=== PATIENT | male | born 1980 | race Caucasian/White ===

== ENCOUNTER 2020-12-21 21:33 | Inpatient (IN) | payer MEDICARE ==
[2020-12-21 21:44] LABS: Glucose,Whole Blood 529 mg/dL (75-99)
[2020-12-21] MEDS ORDERED: SODIUM CHLORIDE 0.9% 1,000 ML IV STA ×2 (21:46→21:49)
[2020-12-21] MEDS ORDERED: HYDROmorphone 0.5 MG/0.5 ML SYRINGE IVP STA (21:47)
--- NOTE | 2020-12-21 21:49 | ED ---
General Adult HPI - General Chief complaint: Nausea/Vomiting/Diarrhea Stated complaint: Hyperglycemia Time Seen by Provider: 12/21/20 21:38 Source: EMS Mode of arrival: EMS Limitations: no limitations - History of Present Illness Initial comments: Dictation was produced using [employer] dictation software. please excuse any grammatical, word or spelling errors. This patient was cared for during a federal and state declared state of emergency secondary to Covid 19 Chief Complaint: 40-year-old male with past medical history of insulin-dependent diabetes presents with total body pain History of Present Illness: 20-year-old male who presents with total body pain. Patient has history of insulin-dependent diabetes he was recently admitted at [facility] where he states he was discharged. He states he was discharged to [facility]. He takes insulin to control his diabetes. Patient states has been taking it per usual. Patient states he feels nauseated. Does complain of generalized abdominal pain. He states the symptoms are typical of his DKA. EMS: Patient is brought to the emergency department he had a platelet care blood glucose of 530. The ROS documented in this emergency department record has been reviewed and confirmed by me. Those systems with pertinent positive or negative responses have been documented in the HPI. All other systems are other negative and/or noncontributory. PHYSICAL EXAM: General Impression: Alert and oriented x3, not in acute distress, smells of acetone HEENT: Normocephalic atraumatic, extra-ocular movements intact, pupils equal and reactive to light bilaterally, dry mucous members, very poor dentition Cardiovascular: Heart regular rate and rhythm Chest: Able to complete full sentences, no retractions, no tachypnea Abdomen: abdomen soft, non-tender, non-distended, no organomegaly Musculoskeletal: Pulses present and equal in all extremities, no peripheral edema Motor: no focal deficits noted Neurological: CN II-XII grossly intact, no focal motor or sensory deficits noted Skin: Intact with no visualized rashes Psych: Normal affect and mood ED course: 40-year-old male presents with clinical presentation concerning for diabetic ketoacidosis. Vital signs upon arrival shows heart rate of 103, rest of vital signs within acceptable limits. She given a liter bolus. Patient sta rted on insulin drip. His potassium is 5.8 with EKG changes. Laboratory evaluation obtained. Mild leukocytosis of 12.9 likely secondary to stress. Blood gas shows venous blood gas pH 7.19 bicarb of 9 and a pCO2 of 25. Metabolic panel also sodium 129, glucose of 05/02/1975 pseudohyponatremia, po tassium 5.8, bicarb less than 5, undetectable anion gap, magnesium 2.4. Clinical presentation consistent with severe diabetic ketoacidosis. Case is discussed with Dr. Loco in the ICU is willing to accept patients care. Case is discussed with sound physician Dr. Donato was went except patient's care to the hospitalist group. EKG interpretation: Ventricular rate was 70, sinus tachycardia,. 126, QRS 92, QTc 445 there is. No HI prolongation, no QTC prolongation. There appears to be some hyperacute T waves in the precordial leads. - Related Data Allergies Allergy/AdvReac Type Severity Reaction Status Date / Time ibuprofen [From Motrin] Allergy Itching Verified 12/21/20 21:45 Review of Systems ROS Statement: Those systems with pertinent positive or pertinent negative responses have been documented in the HPI. ROS Other: All systems not noted in ROS Statement are negative. Past Medical History Past Medical History: Diabetes Mellitus Additional Past Medical History / Comment(s): sick sinus syndrome History of Any Multi-Drug Resistant Organisms: None Reported Past Surgical History: Cholecystectomy Past Psychological History: No Psychological Hx Reported Smoking Status: Former smoker Past Alcohol Use History: None Reported Past Drug Use History: Marijuana General Exam Limitations: no limitations Course Vital Signs 12/21/20 21:38 Temperature 97.5 F L Pulse Rate 103 H Respiratory 24 Rate Blood Pressure 143/96 O2 Sat by Pulse 100 Oximetry Medical Decision Making - Lab Data Result diagrams: 12/21/20 22:26 12/21/20 21:49 Lab Results 12/21/20 12/21/20 12/21/20 Range/Units 21:43 21:49 21:49 WBC (3.8-10.6) k/uL RBC (4.30-5.90) m/uL Hgb (13.0-17.5) gm/dL Hct (39.0-53.0) % MCV (80.0-100.0) fL MCH (25.0-35.0) pg MCHC (31.0-37.0) g/dL RDW (11.5-15.5) % Plt Count (150-450) k/uL MPV Neutrophils % % Lymphocytes % % Monocytes % % Eosinophils % % Basophils % % Neutrophils # (1.3-7.7) k/uL Lymphocytes # (1.0-4.8) k/uL Monocytes # (0-1.0) k/uL Eosinophils # (0-0.7) k/uL Basophils # (0-0.2) k/uL VBG pH (7.31-7.41) VBG pCO2 (37-51) mmHg VBG HCO3 (24-28) mmol/L Sodium 129 L (137-145) mmol/L Potassium 5.8 H (3.5-5.1) mmol/L Chloride 88 L (98-107) mmol/L Carbon Dioxide <5 L* (22-30) mmol/L Anion Gap mmol/L BUN 35 H (9-20) mg/dL Creatinine 1.22 (0.66-1.25) mg/dL Est GFR (CKD-EPI)AfAm 85 (>60 ml/min/1.73 sqM) Est GFR (CKD-EPI)NonAf 74 (>60 ml/min/1.73 sqM) Glucose 624 H* (74-99) mg/dL POC Glucose (mg/dL) 529 H (75-99) mg/dL POC Glu Purchasing Buyer ID Ramo Prince Plasma Lactic Acid Dick 1.8 (0.7-2.0) mmol/L Calcium 10.7 H (8.4-10.2) mg/dL Magnesium 2.4 H (1.6-2.3) mg/dL Total Bilirubin 1.1 (0.2-1.3) mg/dL AST 35 (17-59) U/L ALT 28 (4-49) U/L Alkaline Phosphatase 143 H (38-126) U/L Total Protein 8.2 (6.3-8.2) g/dL Albumin 5.1 H (3.5-5.0) g/dL 12/21/20 12/21/20 Range/Units 21:49 22:26 WBC 12.9 H (3.8-10.6) k/uL RBC 4.45 (4.30-5.90) m/uL Hgb 13.9 (13.0-17.5) gm/dL Hct 43.2 (39.0-53.0) % MCV 97.1 (80.0-100.0) fL MCH 31.2 (25.0-35.0) pg MCHC 32.1 (31.0-37.0) g/dL RDW 13.6 (11.5-15.5) % Plt Count 289 (150-450) k/uL MPV 8.1 Neutrophils % 73 % Lymphocytes % 20 % Monocytes % 5 % Eosinophils % 1 % Basophils % 0 % Neutrophils # 9.3 H (1.3-7.7) k/uL Lymphocytes # 2.5 (1.0-4.8) k/uL Monocytes # 0.7 (0-1.0) k/uL Eosinophils # 0.1 (0-0.7) k/uL Basophils # 0.0 (0-0.2) k/uL VBG pH 7.19 L* (7.31-7.41) VBG pCO2 25 L (37-51) mmHg VBG HCO3 9 L* (24-28) mmol/L Sodium (137-145) mmol/L Potassium (3.5-5.1) mmol/L Chloride (98-107) mmol/L Carbon Dioxide (22-30) mmol/L Anion Gap mmol/L BUN (9-20) mg/dL Creatinine (0.66-1.25) mg/dL Est GFR (CKD-EPI)AfAm (>60 ml/min/1.73 sqM) Est GFR (CKD-EPI)NonAf (>60 ml/min/1.73 sqM) Glucose (74-99) mg/dL POC Glucose (mg/dL) (75-99) mg/dL POC Glu Purchasing Buyer ID Plasma Lactic Acid Dick (0.7-2.0) mmol/L Calcium (8.4-10.2) mg/dL Magnesium (1.6-2.3) mg/dL Total Bilirubin (0.2-1.3) mg/dL AST (17-59) U/L ALT (4-49) U/L Alkaline Phosphatase (38-126) U/L Total Protein (6.3-8.2) g/dL Albumin (3.5-5.0) g/dL Critical Care Time Critical Care Time: Yes Total Critical Care Time: 33 Disposition Clinical Impression: DKA (diabetic ketoacidoses) Disposition: ADMITTED IP TO THIS HOSP Condition: Critical Referrals: None,Stated [Primary Care Provider] - 1-2 days Decision Time: 22:42
[2020-12-21 22:15] LABS: ALT 28 U/L (4-49); AST 35 U/L (17-59); African American GFR (CKD) 85 (>60 ml/min/1.73 sqM); Albumin 5.1 g/dL (3.5-5.0); Alkaline Phosphatase 143 U/L (38-126); Blood Urea Nitrogen 35 mg/dL (9-20); Calcium 10.7 mg/dL (8.4-10.2); Chloride 88 mmol/L (98-107); Magnesium 2.4 mg/dL (1.6-2.3); Non-African American GFR(CKD) 74 (>60 ml/min/1.73 sqM); Potassium 5.8 mmol/L (3.5-5.1); Sodium 129 mmol/L (137-145); Total Bilirubin 1.1 mg/dL (0.2-1.3); Total Protein 8.2 g/dL (6.3-8.2)
[2020-12-21 22:25] LABS: Carbon Dioxide <5 mmol/L (22-30); Glucose 624 mg/dL (74-99)
[2020-12-21] MEDS ORDERED: Potassium Replacement Protocol 1 EACH MISC MISCELLANE PRN (22:32)
[2020-12-21] MEDS ORDERED: INSULIN REGULAR BOLUS (FROM DRIP BAG) IV ONE (22:32)
[2020-12-21] MEDS ORDERED: Magnesium Replacement Protocol 1 EACH MISC MISCELLANE PRN (22:32)
[2020-12-21] MEDS ORDERED: NALOXONE 0.4 MG/ML 1 ML VIAL IV PRN (22:34)
[2020-12-21 22:39] LABS: VBG PH 7.19 (7.31-7.41)
[2020-12-21 22:40] LABS: Basophils % (A) 0 %; Eosinophils # (A) 0.1 k/uL (0-0.7); Eosinophils % (A) 1 %; HCT 43.2 % (39.0-53.0); HGB 13.9 gm/dL (13.0-17.5); Lymphocytes # (A) 2.5 k/uL (1.0-4.8); Lymphocytes % (A) 20 %; MCH 31.2 pg (25.0-35.0); MCHC 32.1 g/dL (31.0-37.0); MCV 97.1 fL (80.0-100.0); Mean Platelet Volume 8.1; Monocytes # (A) 0.7 k/uL (0-1.0); Monocytes % (A) 5 %; Neutrophils # (A) 9.3 k/uL (1.3-7.7); Neutrophils % (A) 73 %; Platelet Count 289 k/uL (150-450); RBC 4.45 m/uL (4.30-5.90); RDW 13.6 % (11.5-15.5); WBC 12.9 k/uL (3.8-10.6)
[2020-12-21] MEDS ORDERED: SODIUM CHLORIDE 0.9% 1,000 ML IV SCH (22:45)
[2020-12-21] MEDS: INSULIN REGULAR 100 UNIT in SODIUM CHLORIDE 0.9% 100 ML IV SCH (22:48)
[2020-12-21] MEDS ORDERED: CALCIUM GLUCONATE 1 GM in SODIUM CHLORIDE 0.9% 100 ML IVPB ONE (23:18)
[2020-12-21 23:23] LABS: Glucose,Whole Blood 536 mg/dL (75-99)
--- NOTE | 2020-12-21 23:23 | P.HPIM ---
History of Present Illness H&P Date: 12/21/20 Patient is a 1-year-old male with a PMH of type I DM who presented to the emergency room with complaints of nausea, vomiting, weakness. The patient notes that he was admitted some [facility] for DKA 4 days ago when he he presented with with similar complaints. He was discharged from there yesterday, but notes that he felt that it was too early. Patient notes that he went home and continued taking his insulin regimen but had multiple episodes of nausea and vomiting at which point he decided to come to the emergency room. Reports that the vomiting is nonbloody, too many episodes to count today. Denied fever, chills, chest, shortness of breath, diarrhea, abdominal pain.That he feels "tired all over". He notes that his symptoms are typical of his usual episodes of DKA for which he has been admitted to the hospital several times. He underwent an extensive evaluation in the emergency room which was all reviewed with the count 12.9, pH 7.19 on VBG, sodium 129, potassium 5.8, chloride 88, CO2 less than 5, BUN 35, creatinine 1.22, glucose 624, calcium 10.7, magnesium 2.4, alk phos 143, and albumin of 5.1. EKG reveals sinus tachycardia at 107 bpm with a rightward axis along with peaked T waves. Review of Systems Pertinent positives and negatives as discussed in HPI, a complete review of systems was performed and all other systems are negative. Past Medical History Past Medical History: Diabetes Mellitus Additional Past Medical History / Comment(s): sick sinus syndrome History of Any Multi-Drug Resistant Organisms: None Reported Past Surgical History: Cholecystectomy Past Psychological History: No Psychological Hx Reported Smoking Status: Former smoker Past Alcohol Use History: None Reported Past Drug Use History: Marijuana Medications and Allergies Allergies Allergy/AdvReac Type Severity Reaction Status Date / Time ibuprofen [From Motrin] Allergy Itching Verified 12/21/20 21:45 Physical Exam Vitals: Vital Signs Temp Pulse Resp BP Pulse Ox 12/21/20 21:38 97.5 F L 103 H 24 143/96 100 Intake and Output 12/21/20 12/21/20 12/22/20 14:59 22:59 06:59 Other: Weight 68.039 kg General: Chronically ill-appearing thin male, no distress, appears older than stated age Derm: no unusual rashes/lesions no unusual ecchymoses, warm, dry Head: atraumatic, normocephalic, symmetric Eyes: EOMI, no lid lag, anicteric sclera, pupils equal round reactive to light ENT: Nose and ears atraumatic, no thrush, no pharyngeal erythema Neck: No thyromegaly, no cervical lymphadenopathy, trachea midline, supple Mouth: no lip lesion, mucus membranes dry Cardiovascular: S1S2 reg, tachycardic, no murmur, positive posterior tibial pulse bilateral, no edema, capillary refill less than 2 seconds Lungs: CTA bilateral, no rhonchi, no rales , no accessory muscle use Abdominal: soft, nontender to palpation, no guarding, no appreciable organomegaly, normal bowel sounds Ext: no gross muscle atrophy, muscle strength 4 out of 5 in all 4 extremities grossly, no contractures, Neuro: CN II-XI grossly intact, light touch intact all 4 extremities Psych: Alert, oriented, appropriate affect Results CBC & Chem 7: 12/21/20 22:26 12/21/20 21:49 Labs: Abnormal Lab Results - Last 24 Hours (Table) 12/21/20 12/21/20 12/21/20 Range/Units 21:43 21:49 21:49 WBC (3.8-10.6) k/uL Neutrophils # (1.3-7.7) k/uL VBG pH 7.19 L* (7.31-7.41) VBG pCO2 25 L (37-51) mmHg VBG HCO3 9 L* (24-28) mmol/L Sodium 129 L (137-145) mmol/L Potassium 5.8 H (3.5-5.1) mmol/L Chloride 88 L (98-107) mmol/L Carbon Dioxide <5 L* (22-30) mmol/L BUN 35 H (9-20) mg/dL Glucose 624 H* (74-99) mg/dL POC Glucose (mg/dL) 529 H (75-99) mg/dL Calcium 10.7 H (8.4-10.2) mg/dL Magnesium 2.4 H (1.6-2.3) mg/dL Alkaline Phosphatase 143 H (38-126) U/L Albumin 5.1 H (3.5-5.0) g/dL 12/21/20 Range/Units 22:26 WBC 12.9 H (3.8-10.6) k/uL Neutrophils # 9.3 H (1.3-7.7) k/uL VBG pH (7.31-7.41) VBG pCO2 (37-51) mmHg VBG HCO3 (24-28) mmol/L Sodium (137-145) mmol/L Potassium (3.5-5.1) mmol/L Chloride (98-107) mmol/L Carbon Dioxide (22-30) mmol/L BUN (9-20) mg/dL Glucose (74-99) mg/dL POC Glucose (mg/dL) (75-99) mg/dL Calcium (8.4-10.2) mg/dL Magnesium (1.6-2.3) mg/dL Alkaline Phosphatase (38-126) U/L Albumin (3.5-5.0) g/dL Assessment and Plan Plan: DKA in type 1 diabetic -Insulin infusion -IV fluids 200 mL an hour -DKA protocol with electrolyte monitoring every 4 hourly -Blood glucose monitoring every hour -Admitted to medical ICU -nursing educator -Nothing by mouth for now Nausea, vomiting -Likely due to DKA -Antiemetics Hyperkalemia with peaked T waves -Administer calcium gluconate -Monitor electrolytes -Cardiac monitoring Pseudohyponatremia -Monitor BMP Leukocytosis -Likely due to dehydration -Monitor for now DVT prophylaxis -Heparin subq The patient is admitted with an anticipated Greater than 2 midnight stay for evaluation of DKA CODE STATUS: Full Code Discussed with: Patient Anticipated discharge date: 2-[address]: Home A total of 40 minutes was spent on the care of this complex patient more than 50% of the time was spent in counseling and care coordination.
[2020-12-21 23:50] LABS: VBG PH 7.11 (7.31-7.41)
[2020-12-21 23:59] LABS: Glucose,Whole Blood 478 mg/dL (75-99)
[2020-12-22] LABS: African American GFR (CKD) 74 (>60 ml/min/1.73 sqM); Blood Urea Nitrogen 36 mg/dL (9-20); Chloride 92 mmol/L (98-107); Non-African American GFR(CKD) 64 (>60 ml/min/1.73 sqM); Phosphorus 5.9 mg/dL (2.5-4.5); Potassium 5.6 mmol/L (3.5-5.1); Sodium 129 mmol/L (137-145)
[2020-12-22 00:24] LABS: Carbon Dioxide <5 mmol/L (22-30); Glucose 610 mg/dL (74-99)
[2020-12-22 01:00] LABS: Glucose,Whole Blood 390 mg/dL (75-99)
[2020-12-22] MEDS: ONDANSETRON 4 MG/2 ML VIAL IVP PRN ×2 (01:01→07:04)
[2020-12-22] MEDS: MORPHINE SULFATE 2 MG/ML SYRINGE IVP PRN ×2 (01:01→12:20)
[2020-12-22 01:59] LABS: Glucose,Whole Blood 238 mg/dL (75-99)
[2020-12-22] MEDS ORDERED: DEXTROSE 5%-0.45% NACL 1,000 ML with POTASSIUM CHLORIDE 20 MEQ IV SCH ×2 (02:00)
[2020-12-22 03:04] LABS: Glucose,Whole Blood 186 mg/dL (75-99)
[2020-12-22 04:09] LABS: Glucose,Whole Blood 155 mg/dL (75-99)
[2020-12-22 04:26] LABS: Basophils % (A) 0 %; Eosinophils % (A) 0 %; HGB 13.1 gm/dL (13.0-17.5); Lymphocytes # (A) 2.5 k/uL (1.0-4.8); Lymphocytes % (A) 15 %; MCH 30.6 pg (25.0-35.0); MCHC 32.8 g/dL (31.0-37.0); MCV 93.4 fL (80.0-100.0); Mean Platelet Volume 7.5; Monocytes # (A) 0.8 k/uL (0-1.0); Monocytes % (A) 5 %; Neutrophils # (A) 13.3 k/uL (1.3-7.7); Neutrophils % (A) 80 %; Platelet Count 290 k/uL (150-450); RBC 4.29 m/uL (4.30-5.90); RDW 13.6 % (11.5-15.5); WBC 16.7 k/uL (3.8-10.6)
[2020-12-22 04:36] LABS: African American GFR (CKD) >90 (>60 ml/min/1.73 sqM); Anion Gap 21 mmol/L; Blood Urea Nitrogen 33 mg/dL (9-20); Carbon Dioxide 12 mmol/L (22-30); Chloride 102 mmol/L (98-107); Glucose 183 mg/dL (74-99); Non-African American GFR(CKD) 79 (>60 ml/min/1.73 sqM); Potassium 4.6 mmol/L (3.5-5.1); Sodium 135 mmol/L (137-145)
[2020-12-22 05:00] LABS: Glucose,Whole Blood 122 mg/dL (75-99)
[2020-12-22 06:05] LABS: Glucose,Whole Blood 120 mg/dL (75-99)
[2020-12-22 06:55] LABS: Glucose,Whole Blood 114 mg/dL (75-99)
[2020-12-22 07:57] LABS: African American GFR (CKD) >90 (>60 ml/min/1.73 sqM); Anion Gap 17 mmol/L; Blood Urea Nitrogen 32 mg/dL (9-20); Carbon Dioxide 15 mmol/L (22-30); Chloride 104 mmol/L (98-107); Non-African American GFR(CKD) >90 (>60 ml/min/1.73 sqM); Phosphorus 3.9 mg/dL (2.5-4.5); Potassium 4.6 mmol/L (3.5-5.1); Sodium 136 mmol/L (137-145)
[2020-12-22 08:25] LABS: Glucose,Whole Blood 166 mg/dL (75-99)
--- NOTE | 2020-12-22 08:34 | P.CNPUL ---
History of Present Illness Consult date: 12/22/20 Chief complaint: DKA History of present illness: 40-year-old male patient, type I diabetic, presented to the emergency with DKA after having some nausea and emesis and generalized weakness at home. The patient was at [facility] for DKA about 4 days ago with similar presentation. He was discharged yesterday. He went home. He was taken apparently his insulin regimen and he continued to have nausea and vomiting and he decided to come to our emergency department. In the ED, the patient was acidotic and he was in DKA. Sodium was at 129 with a potassium level of 5.8, serum bicarbonate was less than 5, glucose was 624, and his BUN was 35. Potassium level was at 5.6 with a normal liver function tests, the [place] 19 testing was negative. The lactic acid level was within normal limits. The chest x-ray was not done. Since arrival, the patient was started on IV fluids. He was given a total of 2 L in the emergency and there is a station was continued in the ICU. He was started on an insulin drip. [facility], it is on a D5 half-normal saline with 20 mEq of potassium running at the rate of 150 mL an hour. He remains on insulin drip running at 1 unit per hour. 1. His most recent blood sugar is at 166. His most recent blood work shows an anion gap which is closing is down to 17 and the patient has a serum bicarb of 15. He did encounter some nausea and he was given Zofran. No emesis for now. Review of Systems All systems: negative Constitutional: Reports weakness Eyes: bilateral blurred vision, denies as per HPI, denies bulging eye, denies decreased vision, denies diplopia, denies discharge, denies dry eye, denies irritation, denies itching, denies pain, denies photophobia, denies loss of peripheral vision, denies loss of vision, denies tunnel vision/blind spots Ears: deny: decreased hearing, ear discharge, earache, tinnitus Ears, nose, mouth and throat: Denies headache, Denies sore throat Breasts: absent: as per HPI, gynecomastia Cardiovascular: Reports as per HPI Respiratory: Reports as per HPI Gastrointestinal: Reports nausea, Reports vomiting Genitourinary: Reports as per HPI Musculoskeletal: Reports as per HPI Musculoskeletal: absent: ankle pain, ankle stiffness, ankle swelling Integumentary: Reports as per HPI Neurological: Reports weakness Psychiatric: Reports as per HPI Endocrine: Reports as per HPI Hematologic/Lymphatic: Reports as per HPI Allergic/Immunologic: Reports as per HPI Past Medical History Past Medical History: Diabetes Mellitus Additional Past Medical History / Comment(s): sick sinus syndrome History of Any Multi-Drug Resistant Organisms: None Reported Past Surgical History: Cholecystectomy Past Psychological History: No Psychological Hx Reported Smoking Status: Former smoker Past Alcohol Use History: None Reported Past Drug Use History: Marijuana Medications and Allergies Home Medications Medication Instructions Recorded Confirmed Type Acetaminophen Tab [Tylenol] 1,000 mg PO DAILY PRN 12/21/20 12/21/20 History Insulin Aspart [NovoLOG] 16 unit SQ BID-W/MEALS 12/21/20 12/21/20 History Insulin Aspart [NovoLOG] See Protocol SQ BID-W/MEALS 12/21/20 12/21/20 History Insulin Glargine,Hum.rec.anlog 30 unit SQ HS 12/21/20 12/21/20 History [Basaglar Kwikpen U-100] dilTIAZem HCL [dilTIAZem HCL 24Hr 120 mg PO DAILY 12/21/20 12/21/20 History ER (Xr)] Allergies Allergy/AdvReac Type Severity Reaction Status Date / Time ibuprofen [From Motrin] Allergy Itching Verified 12/21/20 23:21 Physical Exam Vitals: Vital Signs Temp Pulse Resp BP Pulse Ox 12/22/20 07:00 99 21 112/77 99 12/22/20 06:00 87 18 111/69 96 12/22/20 05:00 96 17 120/80 97 12/22/20 04:00 97.4 F L 86 13 117/80 96 12/22/20 03:00 90 13 128/87 97 12/22/20 02:00 96 12 123/81 98 12/22/20 01:00 95 14 159/98 98 12/22/20 00:21 94 12 98 12/22/20 00:00 98.3 F 112 H 22 160/97 99 12/21/20 23:30 97 16 125/70 100 12/21/20 23:00 98 16 114/53 100 12/21/20 22:30 101 H 18 108/80 100 12/21/20 22:00 107 H 22 123/71 100 12/21/20 21:38 97.5 F L 103 H 24 143/96 100 Intake and Output 12/21/20 12/22/20 12/22/20 22:59 06:59 14:59 Intake Total 1254.744 150 Output Total 600 0 Balance 654.744 150 Intake: IV 1200 150 Dextrose 5%-0.45% NaCl 1, 600 150 000 ml @ 150 mls/hr IV . Q7H20M EDGAR with Potassium Chloride 20 meq Rx#: [id number] Sodium Chloride 0.9% 1, 600 000 ml @ 200 mls/hr IV . Q5H EDGAR Rx#:[id number] Intake, IV Titration 54.744 Amount Insulin Regular 100 unit 54.744 In Sodium Chloride 0.9% 100 ml @ 0.1 UNITS/KG/HR 6.872 mls/hr IV .[id number] EDGAR Rx#:[id number] Output: Urine 600 0 Other: Voiding Method Urinal Weight 68.039 kg 73.391 kg The patient appeared well nourished and normally developed. Vital signs as documented. Head exam is unremarkable. No scleral icterus or corneal arcus noted. Neck is without jugular venous distension, thyromegaly, or carotid bruits. Carotid upstrokes are brisk bilaterally. Lungs are clear to auscultation and percussion. Cardiac exam reveals the PMI to be normally sized and situated. Rhythm is regular. First and second heart sounds normal. No murmurs, rubs or gallops. Abdominal exam reveals normal bowel sounds, no masses, no organomegaly and no aortic enlargement. Extremities are nonedematous and both femoral and pedal pulses are normal.Examination of the skin revealed no evidence of significant rashes, suspicious appearing nevi or other concerning lesions. Neurologically the patient is arousable. His neurologic exam is nonfocal. Is following commands. Answering questions and moving extremities without any limitation. Results - Laboratory Findings CBC and BMP: 12/22/20 03:24 12/22/20 07:30 Abnormal lab findings: Abnormal Labs 12/21/20 12/21/20 12/21/20 21:43 21:49 21:49 WBC RBC Neutrophils # VBG pH 7.19 L* VBG pCO2 25 L VBG HCO3 9 L* Sodium 129 L Potassium 5.8 H Chloride 88 L Carbon Dioxide <5 L* BUN 35 H Creatinine Glucose 624 H* POC Glucose (mg/dL) 529 H Calcium 10.7 H Phosphorus Magnesium 2.4 H Alkaline Phosphatase 143 H Albumin 5.1 H 12/21/20 12/21/20 12/21/20 22:26 23:07 23:07 WBC 12.9 H RBC Neutrophils # 9.3 H VBG pH 7.11 L* VBG pCO2 25 L VBG HCO3 8 L* Sodium 129 L Potassium 5.6 H Chloride 92 L Carbon Dioxide <5 L* BUN 36 H Creatinine 1.36 H Glucose 610 H* POC Glucose (mg/dL) Calcium Phosphorus 5.9 H Magnesium Alkaline Phosphatase Albumin 12/21/20 12/21/20 12/22/20 23:20 23:48 00:58 WBC RBC Neutrophils # VBG pH VBG pCO2 VBG HCO3 Sodium Potassium Chloride Carbon Dioxide BUN Creatinine Glucose POC Glucose (mg/dL) 536 H 478 H 390 H Calcium Phosphorus Magnesium Alkaline Phosphatase Albumin 12/22/20 12/22/20 12/22/20 01:58 03:02 03:21 WBC RBC Neutrophils # VBG pH VBG pCO2 VBG HCO3 Sodium 135 L Potassium Chloride Carbon Dioxide 12 L BUN 33 H Creatinine Glucose 183 H POC Glucose (mg/dL) 238 H 186 H Calcium Phosphorus Magnesium Alkaline Phosphatase Albumin 12/22/20 12/22/20 12/22/20 03:24 04:07 04:59 WBC 16.7 H RBC 4.29 L Neutrophils # 13.3 H VBG pH VBG pCO2 VBG HCO3 Sodium Potassium Chloride Carbon Dioxide BUN Creatinine Glucose POC Glucose (mg/dL) 155 H 122 H Calcium Phosphorus Magnesium Alkaline Phosphatase Albumin 12/22/20 12/22/20 12/22/20 06:03 06:53 07:30 WBC RBC Neutrophils # VBG pH VBG pCO2 VBG HCO3 Sodium 136 L Potassium Chloride Carbon Dioxide 15 L BUN 32 H Creatinine Glucose POC Glucose (mg/dL) 120 H 114 H Calcium Phosphorus Magnesium Alkaline Phosphatase Albumin Assessment and Plan Plan: 1. Diabetic ketoacidosis in a 40-year-old male patient who has type 1 diabetes mellitus. This is a recurrent event. The patient had nausea and emesis probably related to underlying gastroparesis. His liver function tests are within normal. His post cholecystectomy. He is still nauseated. He is having some dry heaves. He remains on D5 half-normal saline at the rate of 150 mL an hour and insulin at 1 units per hour. The anion gap improving. Anion gap metabolic acidosis improving and the gap is down to 17 with a serum bicarb of 15. 2 diabetes mellitus type 1 3 ongoing nausea and emesis. Rule out underlying diabetic gastroparesis. Will need amylase and lipase. Currently on Zofran 4 history of cholecystectomy. 5 pseudohyponatremia, 6 acute hyperkalemia, improved with intracellular shift of potassium with insulin therapy Plan Check amylase and lipase Abdominal exam is benign. IV Protonix IV Zofran as needed for nausea Keep the insulin drip running as long as the patient is unable to eat and the patient is still in anion gap metabolic acidosis and the most recent manic episodes 17 and continue also the D5 half-normal saline at the rate of 150 mL an hour and monitor the blood sugar on an hourly basis Monitor urine output and electrolytes Keep in the ICU Will follow
[2020-12-22 08:59] LABS: Amylase 69 U/L (30-110); Lipase 73 U/L (23-300)
[2020-12-22 09:09] LABS: Glucose,Whole Blood 185 mg/dL (75-99)
[2020-12-22] MEDS ORDERED: Phosphorus Replacement Protoco 1 EACH MISC MISCELLANE PRN (09:25)
--- NOTE | 2020-12-22 09:26 | P.PN ---
Subjective Progress Note Date: 12/22/20 Patient was seen and evaluated by me in the intensive care today. He is very tired and sleepy. He is having dry heaves earlier this morning. Lab work showing some improvement currently on DKA protocol. Objective - Vital Signs Vital signs: Vital Signs Temp 97.4 F L 12/22/20 04:00 Pulse 99 12/22/20 07:00 Resp 21 12/22/20 07:00 BP 112/77 12/22/20 07:00 Pulse Ox 99 12/22/20 07:00 Intake & Output 12/21/20 12/22/20 12/22/20 18:59 06:59 18:59 Intake Total 1254.744 150 Output Total 600 0 Balance 654.744 150 Weight 73.391 kg Intake: IV 1200 150 Dextrose 5%-0.45% NaCl 1, 600 150 000 ml @ 150 mls/hr IV . Q7H20M [facility] with Potassium Chloride 20 meq Rx#: [id number] Sodium Chloride 0.9% 1, 600 000 ml @ 200 mls/hr IV . Q5H [facility] Rx#:[id number] Intake, IV Titration 54.744 Amount Insulin Regular 100 unit 54.744 In Sodium Chloride 0.9% 100 ml @ 0.1 UNITS/KG/HR 6.872 mls/hr IV .[id number] [facility] Rx#:[id number] Output: Urine 600 0 Other: Voiding Method Urinal - Exam General: The patient is awake and alert, in no distress Eye: there is normal conjunctiva bilaterally. Neck: The neck is supple, there is no JVD. Cardiovascular: Normal S1-S2, no S3-S4, no murmurs. Respiratory: Lungs clear to auscultation bilaterally Gastrointestinal: Abdomen is soft, nontender Musculoskeletal: There is no pedal edema. Neurological:. Speech is normal. Skin: Skin is warm and dry - Labs CBC & Chem 7: 12/22/20 03:24 12/22/20 07:30 Labs: Abnormal Lab Results - Last 24 Hours (Table) 12/21/20 12/21/20 12/21/20 Range/Units 21:43 21:49 21:49 WBC (3.8-10.6) k/uL RBC (4.30-5.90) m/uL Neutrophils # (1.3-7.7) k/uL VBG pH 7.19 L* (7.31-7.41) VBG pCO2 25 L (37-51) mmHg VBG HCO3 9 L* (24-28) mmol/L Sodium 129 L (137-145) mmol/L Potassium 5.8 H (3.5-5.1) mmol/L Chloride 88 L (98-107) mmol/L Carbon Dioxide <5 L* (22-30) mmol/L BUN 35 H (9-20) mg/dL Creatinine (0.66-1.25) mg/dL Glucose 624 H* (74-99) mg/dL POC Glucose (mg/dL) 529 H (75-99) mg/dL Calcium 10.7 H (8.4-10.2) mg/dL Phosphorus (2.5-4.5) mg/dL Magnesium 2.4 H (1.6-2.3) mg/dL Alkaline Phosphatase 143 H (38-126) U/L Albumin 5.1 H (3.5-5.0) g/dL 12/21/20 12/21/20 12/21/20 Range/Units 22:26 23:07 23:07 WBC 12.9 H (3.8-10.6) k/uL RBC (4.30-5.90) m/uL Neutrophils # 9.3 H (1.3-7.7) k/uL VBG pH 7.11 L* (7.31-7.41) VBG pCO2 25 L (37-51) mmHg VBG HCO3 8 L* (24-28) mmol/L Sodium 129 L (137-145) mmol/L Potassium 5.6 H (3.5-5.1) mmol/L Chloride 92 L (98-107) mmol/L Carbon Dioxide <5 L* (22-30) mmol/L BUN 36 H (9-20) mg/dL Creatinine 1.36 H (0.66-1.25) mg/dL Glucose 610 H* (74-99) mg/dL POC Glucose (mg/dL) (75-99) mg/dL Calcium (8.4-10.2) mg/dL Phosphorus 5.9 H (2.5-4.5) mg/dL Magnesium (1.6-2.3) mg/dL Alkaline Phosphatase (38-126) U/L Albumin (3.5-5.0) g/dL 12/21/20 12/21/20 12/22/20 Range/Units 23:20 23:48 00:58 WBC (3.8-10.6) k/uL RBC (4.30-5.90) m/uL Neutrophils # (1.3-7.7) k/uL VBG pH (7.31-7.41) VBG pCO2 (37-51) mmHg VBG HCO3 (24-28) mmol/L Sodium (137-145) mmol/L Potassium (3.5-5.1) mmol/L Chloride (98-107) mmol/L Carbon Dioxide (22-30) mmol/L BUN (9-20) mg/dL Creatinine (0.66-1.25) mg/dL Glucose (74-99) mg/dL POC Glucose (mg/dL) 536 H 478 H 390 H (75-99) mg/dL Calcium (8.4-10.2) mg/dL Phosphorus (2.5-4.5) mg/dL Magnesium (1.6-2.3) mg/dL Alkaline Phosphatase (38-126) U/L Albumin (3.5-5.0) g/dL 12/22/20 12/22/20 12/22/20 Range/Units 01:58 03:02 03:21 WBC (3.8-10.6) k/uL RBC (4.30-5.90) m/uL Neutrophils # (1.3-7.7) k/uL VBG pH (7.31-7.41) VBG pCO2 (37-51) mmHg VBG HCO3 (24-28) mmol/L Sodium 135 L (137-145) mmol/L Potassium (3.5-5.1) mmol/L Chloride (98-107) mmol/L Carbon Dioxide 12 L (22-30) mmol/L BUN 33 H (9-20) mg/dL Creatinine (0.66-1.25) mg/dL Glucose 183 H (74-99) mg/dL POC Glucose (mg/dL) 238 H 186 H (75-99) mg/dL Calcium (8.4-10.2) mg/dL Phosphorus (2.5-4.5) mg/dL Magnesium (1.6-2.3) mg/dL Alkaline Phosphatase (38-126) U/L Albumin (3.5-5.0) g/dL 12/22/20 12/22/20 12/22/20 Range/Units 03:24 04:07 04:59 WBC 16.7 H (3.8-10.6) k/uL RBC 4.29 L (4.30-5.90) m/uL Neutrophils # 13.3 H (1.3-7.7) k/uL VBG pH (7.31-7.41) VBG pCO2 (37-51) mmHg VBG HCO3 (24-28) mmol/L Sodium (137-145) mmol/L Potassium (3.5-5.1) mmol/L Chloride (98-107) mmol/L Carbon Dioxide (22-30) mmol/L BUN (9-20) mg/dL Creatinine (0.66-1.25) mg/dL Glucose (74-99) mg/dL POC Glucose (mg/dL) 155 H 122 H (75-99) mg/dL Calcium (8.4-10.2) mg/dL Phosphorus (2.5-4.5) mg/dL Magnesium (1.6-2.3) mg/dL Alkaline Phosphatase (38-126) U/L Albumin (3.5-5.0) g/dL 12/22/20 12/22/20 12/22/20 Range/Units 06:03 06:53 07:30 WBC (3.8-10.6) k/uL RBC (4.30-5.90) m/uL Neutrophils # (1.3-7.7) k/uL VBG pH (7.31-7.41) VBG pCO2 (37-51) mmHg VBG HCO3 (24-28) mmol/L Sodium 136 L (137-145) mmol/L Potassium (3.5-5.1) mmol/L Chloride (98-107) mmol/L Carbon Dioxide 15 L (22-30) mmol/L BUN 32 H (9-20) mg/dL Creatinine (0.66-1.25) mg/dL Glucose (74-99) mg/dL POC Glucose (mg/dL) 120 H 114 H (75-99) mg/dL Calcium (8.4-10.2) mg/dL Phosphorus (2.5-4.5) mg/dL Magnesium (1.6-2.3) mg/dL Alkaline Phosphatase (38-126) U/L Albumin (3.5-5.0) g/dL 12/22/20 12/22/20 Range/Units 08:23 09:07 WBC (3.8-10.6) k/uL RBC (4.30-5.90) m/uL Neutrophils # (1.3-7.7) k/uL VBG pH (7.31-7.41) VBG pCO2 (37-51) mmHg VBG HCO3 (24-28) mmol/L Sodium (137-145) mmol/L Potassium (3.5-5.1) mmol/L Chloride (98-107) mmol/L Carbon Dioxide (22-30) mmol/L BUN (9-20) mg/dL Creatinine (0.66-1.25) mg/dL Glucose (74-99) mg/dL POC Glucose (mg/dL) 166 H 185 H (75-99) mg/dL Calcium (8.4-10.2) mg/dL Phosphorus (2.5-4.5) mg/dL Magnesium (1.6-2.3) mg/dL Alkaline Phosphatase (38-126) U/L Albumin (3.5-5.0) g/dL Assessment and Plan Assessment: This is a 40-year-old male with past medical history noted below significant for type 1 diabetes who presented to the emergency room with nausea and vomiting one day after being discharged from the hospital in [place]. Patient was evaluated in the ER and admitted to the hospital for further management of his medical problems noted below. 1. Diabetic ketoacidosis 2. Uncontrolled type 1 diabetes 3. Acute metabolic acidosis 4. Nausea and vomiting 5. Hypovolemic hyponatremia 6. Hyperkalemia Patient is admitted to the ICU and is treated with insulin drip and aggressive IV fluid hydration. DKA protocol. Hyperkalemia resolved after being treated medically. Continue to monitor lab work every 4 hours and replace electrolytes as needed. IV Zofran as needed for nausea. We will continue to monitor clinical status. A1c pending. Appreciate ICU team recommendations.
--- NOTE | 2020-12-22 09:38 | XR ---
EXAMINATION TYPE: XR chest 1V portable DATE OF EXAM: 12/22/2020 Comparison: None Clinical History: 40-year-old male SOB, history of smoker and MJ Findings: Loop recorder device projects over the medial left mid chest. Heart normal size. Aorta and pulmonary vasculature within normal limits. Mild hyperinflation. No consolidation or pleural effusion. IMPRESSION: Correlation for possible underlying emphysema. Loop recorder device. No acute process seen.
[2020-12-22 10:09] LABS: Glucose,Whole Blood 214 mg/dL (75-99)
[2020-12-22 10:58] LABS: Glucose,Whole Blood 237 mg/dL (75-99)
[2020-12-22 11:54] LABS: African American GFR (CKD) >90 (>60 ml/min/1.73 sqM); Anion Gap 21 mmol/L; Blood Urea Nitrogen 29 mg/dL (9-20); Calcium 9.4 mg/dL (8.4-10.2); Carbon Dioxide 10 mmol/L (22-30); Chloride 104 mmol/L (98-107); Glucose 275 mg/dL (74-99); Magnesium 2.1 mg/dL (1.6-2.3); Non-African American GFR(CKD) 85 (>60 ml/min/1.73 sqM); Phosphorus 3.1 mg/dL (2.5-4.5); Potassium 4.7 mmol/L (3.5-5.1); Sodium 135 mmol/L (137-145)
[2020-12-22] MEDS: HEPARIN SODIUM,PORCINE 5,000 UNIT/ML 1 ML VIAL SQ SCH ×2 (11:57→19:58)
[2020-12-22 12:04] LABS: Glucose,Whole Blood 228 mg/dL (75-99)
[2020-12-22 13:24] LABS: Glucose,Whole Blood 186 mg/dL (75-99)
[2020-12-22 14:02] LABS: Glucose,Whole Blood 180 mg/dL (75-99)
[2020-12-22 14:24] LABS: Hemoglobin A1C 12.4 % (4.0-6.0)
[2020-12-22 15:02] LABS: Glucose,Whole Blood 221 mg/dL (75-99)
[2020-12-22 15:47] LABS: African American GFR (CKD) >90 (>60 ml/min/1.73 sqM); Anion Gap 19 mmol/L; Blood Urea Nitrogen 25 mg/dL (9-20); Calcium 9.3 mg/dL (8.4-10.2); Carbon Dioxide 11 mmol/L (22-30); Chloride 104 mmol/L (98-107); Glucose 243 mg/dL (74-99); Magnesium 2.1 mg/dL (1.6-2.3); Non-African American GFR(CKD) >90 (>60 ml/min/1.73 sqM); Phosphorus 3.5 mg/dL (2.5-4.5); Sodium 134 mmol/L (137-145)
[2020-12-22] MEDS: D5-0.45% NACL WITH KCL 20MEQ/L 1,000 ML IV SCH ×3 (16:48→20:01)
[2020-12-22] MEDS: INSULIN REGULAR 100 UNIT in SODIUM CHLORIDE 0.9% 100 ML IV SCH (16:52)
[2020-12-22 17:05] LABS: Glucose,Whole Blood 236 mg/dL (75-99)
[2020-12-22 18:08] LABS: Glucose,Whole Blood 216 mg/dL (75-99)
[2020-12-22 19:00] LABS: Glucose,Whole Blood 218 mg/dL (75-99)
[2020-12-22 19:57] LABS: Glucose,Whole Blood 219 mg/dL (75-99)
[2020-12-22 19:59] LABS: African American GFR (CKD) >90 (>60 ml/min/1.73 sqM); Anion Gap 14 mmol/L; Blood Urea Nitrogen 21 mg/dL (9-20); Calcium 9.2 mg/dL (8.4-10.2); Carbon Dioxide 15 mmol/L (22-30); Chloride 104 mmol/L (98-107); Glucose 253 mg/dL (74-99); Non-African American GFR(CKD) >90 (>60 ml/min/1.73 sqM); Phosphorus 2.5 mg/dL (2.5-4.5); Potassium 4.8 mmol/L (3.5-5.1); Sodium 133 mmol/L (137-145)
[2020-12-22 20:55] LABS: Glucose,Whole Blood 248 mg/dL (75-99)
[2020-12-22] MEDS ORDERED: SODIUM PHOSPHATE 10 MMOL in SODIUM CHLORIDE 0.9% 250 ML IVPB ONE (21:00)
[2020-12-22 22:02] LABS: Glucose,Whole Blood 207 mg/dL (75-99)
[2020-12-22 22:57] LABS: Glucose,Whole Blood 225 mg/dL (75-99)
[2020-12-22 23:56] LABS: African American GFR (CKD) >90 (>60 ml/min/1.73 sqM); Anion Gap 12 mmol/L; Blood Urea Nitrogen 19 mg/dL (9-20); Carbon Dioxide 17 mmol/L (22-30); Chloride 105 mmol/L (98-107); Glucose 225 mg/dL (74-99); Magnesium 1.9 mg/dL (1.6-2.3); Non-African American GFR(CKD) >90 (>60 ml/min/1.73 sqM); Phosphorus 2.9 mg/dL (2.5-4.5); Potassium 4.3 mmol/L (3.5-5.1); Sodium 134 mmol/L (137-145)
[2020-12-23 00:01] LABS: Glucose,Whole Blood 203 mg/dL (75-99)
[2020-12-23 00:56] LABS: Glucose,Whole Blood 219 mg/dL (75-99)
[2020-12-23 01:59] LABS: Glucose,Whole Blood 197 mg/dL (75-99)
[2020-12-23] MEDS: MAGNESIUM SULFATE-D5W PMX 1 GM in DEXTROSE/WATER 1 100ML.BAG IVPB SCH ×2 (02:05→03:03)
[2020-12-23 02:58] LABS: Glucose,Whole Blood 193 mg/dL (75-99)
[2020-12-23] MEDS: D5-0.45% NACL WITH KCL 20MEQ/L 1,000 ML IV SCH (04:07)
[2020-12-23] MEDS: INSULIN REGULAR 100 UNIT in SODIUM CHLORIDE 0.9% 100 ML IV SCH (04:07)
[2020-12-23 04:11] LABS: Glucose,Whole Blood 201 mg/dL (75-99)
[2020-12-23 04:22] LABS: HCT 37.1 % (39.0-53.0); HGB 12.3 gm/dL (13.0-17.5); MCH 30.7 pg (25.0-35.0); MCHC 33.1 g/dL (31.0-37.0); MCV 92.6 fL (80.0-100.0); Mean Platelet Volume 7.1; Platelet Count 254 k/uL (150-450); RBC 4.01 m/uL (4.30-5.90); RDW 13.8 % (11.5-15.5); WBC 9.2 k/uL (3.8-10.6)
[2020-12-23 04:29] LABS: African American GFR (CKD) >90 (>60 ml/min/1.73 sqM); Anion Gap 7 mmol/L; Blood Urea Nitrogen 18 mg/dL (9-20); Calcium 8.9 mg/dL (8.4-10.2); Carbon Dioxide 22 mmol/L (22-30); Chloride 103 mmol/L (98-107); Glucose 217 mg/dL (74-99); Magnesium 2.6 mg/dL (1.6-2.3); Non-African American GFR(CKD) >90 (>60 ml/min/1.73 sqM); Potassium 3.9 mmol/L (3.5-5.1); Sodium 132 mmol/L (137-145)
[2020-12-23] MEDS ORDERED: POTASSIUM CHLORIDE ER 20 MEQ TAB.ER PO SCH (05:00)
[2020-12-23 05:02] LABS: Glucose,Whole Blood 207 mg/dL (75-99)
[2020-12-23 06:01] LABS: Glucose,Whole Blood 202 mg/dL (75-99)
[2020-12-23 07:02] LABS: Glucose,Whole Blood 225 mg/dL (75-99)
[2020-12-23 08:27] LABS: Glucose,Whole Blood 236 mg/dL (75-99)
[2020-12-23] MEDS: MORPHINE SULFATE 2 MG/ML SYRINGE IVP PRN ×3 (08:56→20:45)
[2020-12-23] MEDS: INSULIN DETEMIR (LEVEMIR) 100 UNIT/ML SYR SQ SCH (08:56)
[2020-12-23] MEDS: HEPARIN SODIUM,PORCINE 5,000 UNIT/ML 1 ML VIAL SQ SCH ×2 (08:56→22:41)
--- NOTE | 2020-12-23 09:45 | P.PN ---
Subjective Progress Note Date: 12/23/20 Patient is doing a lot better today. His lab work improved significantly. He denies any abdominal pain. He reports feeling hungry. Patient informed me that he had difficulties obtaining his medications for the last couple of month as he lost his Medicaid and was unable to afford his co-pay Objective - Vital Signs Vital signs: Vital Signs Temp 98.1 F 12/23/20 08:00 Pulse 77 12/23/20 09:00 Resp 11 L 12/23/20 09:00 BP 142/92 12/23/20 09:00 Pulse Ox 96 12/23/20 09:00 Intake & Output 12/22/20 12/23/20 12/23/20 18:59 06:59 18:59 Intake Total 9808.720 7882.599 300 Output Total 2000 950 Balance -172.276 2758.599 300 Weight 73.391 kg 72.8 kg Intake: IV 1800 2400 300 Dextrose 5%-0.45% NaCl 1, 1800 1950 300 000 ml @ 150 mls/hr IV . Q7H20M [facility] with Potassium Chloride 20 meq Rx#: [id number] Magnesium Sulfate-D5w Pmx 200 1 gm In Dextrose/Water 1 100ml.bag @ 100 mls/hr IVPB Q1H [facility] Rx#: [id number] Sodium Phosphate 10 mmol 250 In Sodium Chloride 0.9% 250 ml @ 125 mls/hr IVPB ONCE ONE Rx#:[id number] Intake, IV Titration 10.276 11.599 Amount Insulin Regular 100 unit 10.276 11.599 In Sodium Chloride 0.9% 100 ml @ 0.1 UNITS/KG/HR 6.872 mls/hr IV .[id number] [facility] Rx#:[id number] Output: Urine 2000 950 Other: Voiding Method Urinal Urinal Urinal - Exam General: The patient is awake and alert, in no distress Eye: there is normal conjunctiva bilaterally. Neck: The neck is supple, there is no JVD. Cardiovascular: Normal S1-S2, no S3-S4, no murmurs. Respiratory: Lungs clear to auscultation bilaterally Gastrointestinal: Abdomen is soft, nontender Musculoskeletal: There is no pedal edema. Neurological:. Speech is normal. Skin: Skin is warm and dry - Labs CBC & Chem 7: 12/23/20 03:40 12/23/20 03:40 Labs: Abnormal Lab Results - Last 24 Hours (Table) 12/22/20 12/22/20 12/22/20 Range/Units 03:21 10:07 10:57 RBC (4.30-5.90) m/uL Hgb (13.0-17.5) gm/dL Hct (39.0-53.0) % Sodium (137-145) mmol/L Carbon Dioxide (22-30) mmol/L BUN (9-20) mg/dL Glucose (74-99) mg/dL POC Glucose (mg/dL) 214 H 237 H (75-99) mg/dL Hemoglobin A1c 12.4 H (4.0-6.0) % Magnesium (1.6-2.3) mg/dL 12/22/20 12/22/20 12/22/20 Range/Units 11:25 12:03 13:23 RBC (4.30-5.90) m/uL Hgb (13.0-17.5) gm/dL Hct (39.0-53.0) % Sodium 135 L (137-145) mmol/L Carbon Dioxide 10 L (22-30) mmol/L BUN 29 H (9-20) mg/dL Glucose 275 H (74-99) mg/dL POC Glucose (mg/dL) 228 H 186 H (75-99) mg/dL Hemoglobin A1c (4.0-6.0) % Magnesium (1.6-2.3) mg/dL 12/22/20 12/22/20 12/22/20 Range/Units 14:01 15:00 15:12 RBC (4.30-5.90) m/uL Hgb (13.0-17.5) gm/dL Hct (39.0-53.0) % Sodium 134 L (137-145) mmol/L Carbon Dioxide 11 L (22-30) mmol/L BUN 25 H (9-20) mg/dL Glucose 243 H (74-99) mg/dL POC Glucose (mg/dL) 180 H 221 H (75-99) mg/dL Hemoglobin A1c (4.0-6.0) % Magnesium (1.6-2.3) mg/dL 12/22/20 12/22/20 12/22/20 Range/Units 17:03 18:06 18:59 RBC (4.30-5.90) m/uL Hgb (13.0-17.5) gm/dL Hct (39.0-53.0) % Sodium (137-145) mmol/L Carbon Dioxide (22-30) mmol/L BUN (9-20) mg/dL Glucose (74-99) mg/dL POC Glucose (mg/dL) 236 H 216 H 218 H (75-99) mg/dL Hemoglobin A1c (4.0-6.0) % Magnesium (1.6-2.3) mg/dL 12/22/20 12/22/20 12/22/20 Range/Units 19:23 19:56 20:53 RBC (4.30-5.90) m/uL Hgb (13.0-17.5) gm/dL Hct (39.0-53.0) % Sodium 133 L (137-145) mmol/L Carbon Dioxide 15 L (22-30) mmol/L BUN 21 H (9-20) mg/dL Glucose 253 H (74-99) mg/dL POC Glucose (mg/dL) 219 H 248 H (75-99) mg/dL Hemoglobin A1c (4.0-6.0) % Magnesium (1.6-2.3) mg/dL 12/22/20 12/22/20 12/22/20 Range/Units 22:01 22:55 23:29 RBC (4.30-5.90) m/uL Hgb (13.0-17.5) gm/dL Hct (39.0-53.0) % Sodium 134 L (137-145) mmol/L Carbon Dioxide 17 L (22-30) mmol/L BUN (9-20) mg/dL Glucose 225 H (74-99) mg/dL POC Glucose (mg/dL) 207 H 225 H (75-99) mg/dL Hemoglobin A1c (4.0-6.0) % Magnesium (1.6-2.3) mg/dL 12/22/20 12/23/20 12/23/20 Range/Units 23:59 00:55 01:58 RBC (4.30-5.90) m/uL Hgb (13.0-17.5) gm/dL Hct (39.0-53.0) % Sodium (137-145) mmol/L Carbon Dioxide (22-30) mmol/L BUN (9-20) mg/dL Glucose (74-99) mg/dL POC Glucose (mg/dL) 203 H 219 H 197 H (75-99) mg/dL Hemoglobin A1c (4.0-6.0) % Magnesium (1.6-2.3) mg/dL 12/23/20 12/23/20 12/23/20 Range/Units 02:56 03:40 03:40 RBC 4.01 L (4.30-5.90) m/uL Hgb 12.3 L (13.0-17.5) gm/dL Hct 37.1 L (39.0-53.0) % Sodium 132 L (137-145) mmol/L Carbon Dioxide (22-30) mmol/L BUN (9-20) mg/dL Glucose 217 H (74-99) mg/dL POC Glucose (mg/dL) 193 H (75-99) mg/dL Hemoglobin A1c (4.0-6.0) % Magnesium 2.6 H (1.6-2.3) mg/dL 12/23/20 12/23/20 12/23/20 Range/Units 04:09 05:01 06:00 RBC (4.30-5.90) m/uL Hgb (13.0-17.5) gm/dL Hct (39.0-53.0) % Sodium (137-145) mmol/L Carbon Dioxide (22-30) mmol/L BUN (9-20) mg/dL Glucose (74-99) mg/dL POC Glucose (mg/dL) 201 H 207 H 202 H (75-99) mg/dL Hemoglobin A1c (4.0-6.0) % Magnesium (1.6-2.3) mg/dL 12/23/20 12/23/20 Range/Units 07:00 08:26 RBC (4.30-5.90) m/uL Hgb (13.0-17.5) gm/dL Hct (39.0-53.0) % Sodium (137-145) mmol/L Carbon Dioxide (22-30) mmol/L BUN (9-20) mg/dL Glucose (74-99) mg/dL POC Glucose (mg/dL) 225 H 236 H (75-99) mg/dL Hemoglobin A1c (4.0-6.0) % Magnesium (1.6-2.3) mg/dL Assessment and Plan Assessment: This is a 40-year-old male with past medical history noted below significant for type 1 diabetes who presented to the emergency room with nausea and vomiting one day after being discharged from the hospital in [place]. Patient was evaluated in the ER and admitted to the hospital for further management of his medical problems noted below. 1. Diabetic ketoacidosis 2. Uncontrolled type 1 diabetes, A1c 12.4 3. Acute metabolic acidosis 4. Nausea and vomiting 5. Hypovolemic hyponatremia 6. Hyperkalemia Patient was admitted to the ICU and is treated with insulin drip and aggressive IV fluid hydration. DKA protocol. Hyperkalemia resolved after being treated medically. Start Levemir 30 units daily and NovoLog 5 units 3 times a day before each meal plus sliding scale insulin. Advance diet as tolerated for consistent carbohydrate. Repeat lab work in the morning. bottling room worker consult to help with Medicaid. Anticipated discharge home tomorrow.
--- NOTE | 2020-12-23 10:51 | P.PN ---
Subjective Progress Note Date: 12/23/20 Principal diagnosis: Acute diabetic ketoacidosis 40-year-old male patient, type I diabetic, presented to the emergency with DKA after having some nausea and emesis and generalized weakness at home. The patient was at [facility] for DKA about 4 days ago with similar presentation. He was discharged yesterday. He went home. He was taken apparently his insulin regimen and he continued to have nausea and vomiting and he decided to come to our emergency department. In the ED, the patient was acidotic and he was in DKA. Sodium was at 129 with a potassium level of 5.8, serum bicarbonate was less than 5, glucose was 624, and his BUN was 35. Potassium level was at 5.6 with a normal liver function tests, the [place] 19 testing was negative. The lactic acid level was within normal limits. The chest x-ray was not done. Since arrival, the patient was started on IV fluids. He was given a total of 2 L in the emergency and there is a station was continued in the ICU. He was started on an insulin drip. At this point in time, it is on a D5 half-normal saline with 20 mEq of potassium running at the rate of 150 mL an hour. He remains on insulin drip running at 1 unit per hour. 1. His most recent blood sugar is at 166. His most recent blood work shows an anion gap which is closing is down to 17 and the patient has a serum bicarb of 15. He did encounter some nausea and he was given Zofran. No emesis for now. Reevaluated today on 12/23/2020, patient remains in the ICU, he responded well to the treatment that he was given for his acute diabetic ketoacidosis. Patient continues to have some vague abdominal discomfort, no nausea, no vomiting, patient is still on insulin drip, presently on 1 unit per hour. And his IV fluid is D5 4 5 at 1 50 mL per hour. Labs today were noted to be excellent. His anion gap has corrected nicely. Electrolytes are normal. CBC is normal. Blood sugar this morning is 217. Hence I plan to transfer the patient out of the ICU to a regular medical floor. Patient remains on Zofran for intermittent nausea. But presently not nauseated. Objective - Vital Signs Vital signs: Vital Signs Temp 98.1 F 12/23/20 08:00 Pulse 79 02/14/21 10:00 Resp 23 12/23/20 10:00 BP 151/109 12/23/20 10:00 Pulse Ox 98 12/23/20 10:00 Intake & Output 12/22/20 12/23/20 12/23/20 18:59 06:59 18:59 Intake Total 4308.801 4321.599 300 Output Total 2000 950 Balance -330.945 9043.599 300 Weight 73.391 kg 72.8 kg Intake: IV 1800 2400 300 Dextrose 5%-0.45% NaCl 1, 1800 1950 300 000 ml @ 150 mls/hr IV . Q7H20M [facility] with Potassium Chloride 20 meq Rx#: [id number] Magnesium Sulfate-D5w Pmx 200 1 gm In Dextrose/Water 1 100ml.bag @ 100 mls/hr IVPB Q1H [facility] Rx#: [id number] Sodium Phosphate 10 mmol 250 In Sodium Chloride 0.9% 250 ml @ 125 mls/hr IVPB ONCE ONE Rx#:[id number] Intake, IV Titration 10.276 11.599 Amount Insulin Regular 100 unit 10.276 11.599 In Sodium Chloride 0.9% 100 ml @ 0.1 UNITS/KG/HR 6.872 mls/hr IV .[id number] [facility] Rx#:[id number] Output: Urine 2000 950 Other: Voiding Method Urinal Urinal Urinal # Bowel Movements 1 - Exam Physical Exam: Revealed 40-year-old white male in no distress. Head: Atraumatic, normocephalic. HEENT:[Neck is supple.] [No neck masses.] [No thyromegaly.] [No JVD.] Chest: [Clear throughout, no crackles, no rhonchi, no wheezes.] Cardiac Exam: [Normal S1 and S2, no S3 gallop, no murmur.] Abdomen: [Soft, nontender, no megaly, no rebound, no guarding, normal bowel sounds.] Extremities: [No clubbing, no edema, no cyanosis.] Neurological Exam: [No focal neurologic deficit.] Alert and oriented 3. Psychiatric: Normal mood affect and normal mental status examination. Skin: No rashes - Labs CBC & Chem 7: 12/23/20 03:40 12/23/20 03:40 Labs: Abnormal Lab Results - Last 24 Hours (Table) 12/22/20 12/22/20 12/22/20 Range/Units 03:21 10:57 11:25 RBC (4.30-5.90) m/uL Hgb (13.0-17.5) gm/dL Hct (39.0-53.0) % Sodium 135 L (137-145) mmol/L Carbon Dioxide 10 L (22-30) mmol/L BUN 29 H (9-20) mg/dL Glucose 275 H (74-99) mg/dL POC Glucose (mg/dL) 237 H (75-99) mg/dL Hemoglobin A1c 12.4 H (4.0-6.0) % Magnesium (1.6-2.3) mg/dL 12/22/20 12/22/20 12/22/20 Range/Units 12:03 13:23 14:01 RBC (4.30-5.90) m/uL Hgb (13.0-17.5) gm/dL Hct (39.0-53.0) % Sodium (137-145) mmol/L Carbon Dioxide (22-30) mmol/L BUN (9-20) mg/dL Glucose (74-99) mg/dL POC Glucose (mg/dL) 228 H 186 H 180 H (75-99) mg/dL Hemoglobin A1c (4.0-6.0) % Magnesium (1.6-2.3) mg/dL 12/22/20 12/22/20 12/22/20 Range/Units 15:00 15:12 17:03 RBC (4.30-5.90) m/uL Hgb (13.0-17.5) gm/dL Hct (39.0-53.0) % Sodium 134 L (137-145) mmol/L Carbon Dioxide 11 L (22-30) mmol/L BUN 25 H (9-20) mg/dL Glucose 243 H (74-99) mg/dL POC Glucose (mg/dL) 221 H 236 H (75-99) mg/dL Hemoglobin A1c (4.0-6.0) % Magnesium (1.6-2.3) mg/dL 12/22/20 12/22/20 12/22/20 Range/Units 18:06 18:59 19:23 RBC (4.30-5.90) m/uL Hgb (13.0-17.5) gm/dL Hct (39.0-53.0) % Sodium 133 L (137-145) mmol/L Carbon Dioxide 15 L (22-30) mmol/L BUN 21 H (9-20) mg/dL Glucose 253 H (74-99) mg/dL POC Glucose (mg/dL) 216 H 218 H (75-99) mg/dL Hemoglobin A1c (4.0-6.0) % Magnesium (1.6-2.3) mg/dL 12/22/20 12/22/20 12/22/20 Range/Units 19:56 20:53 22:01 RBC (4.30-5.90) m/uL Hgb (13.0-17.5) gm/dL Hct (39.0-53.0) % Sodium (137-145) mmol/L Carbon Dioxide (22-30) mmol/L BUN (9-20) mg/dL Glucose (74-99) mg/dL POC Glucose (mg/dL) 219 H 248 H 207 H (75-99) mg/dL Hemoglobin A1c (4.0-6.0) % Magnesium (1.6-2.3) mg/dL 12/22/20 12/22/20 12/22/20 Range/Units 22:55 23:29 23:59 RBC (4.30-5.90) m/uL Hgb (13.0-17.5) gm/dL Hct (39.0-53.0) % Sodium 134 L (137-145) mmol/L Carbon Dioxide 17 L (22-30) mmol/L BUN (9-20) mg/dL Glucose 225 H (74-99) mg/dL POC Glucose (mg/dL) 225 H 203 H (75-99) mg/dL Hemoglobin A1c (4.0-6.0) % Magnesium (1.6-2.3) mg/dL 12/23/20 12/23/20 12/23/20 Range/Units 00:55 01:58 02:56 RBC (4.30-5.90) m/uL Hgb (13.0-17.5) gm/dL Hct (39.0-53.0) % Sodium (137-145) mmol/L Carbon Dioxide (22-30) mmol/L BUN (9-20) mg/dL Glucose (74-99) mg/dL POC Glucose (mg/dL) 219 H 197 H 193 H (75-99) mg/dL Hemoglobin A1c (4.0-6.0) % Magnesium (1.6-2.3) mg/dL 12/23/20 12/23/20 12/23/20 Range/Units 03:40 03:40 04:09 RBC 4.01 L (4.30-5.90) m/uL Hgb 12.3 L (13.0-17.5) gm/dL Hct 37.1 L (39.0-53.0) % Sodium 132 L (137-145) mmol/L Carbon Dioxide (22-30) mmol/L BUN (9-20) mg/dL Glucose 217 H (74-99) mg/dL POC Glucose (mg/dL) 201 H (75-99) mg/dL Hemoglobin A1c (4.0-6.0) % Magnesium 2.6 H (1.6-2.3) mg/dL 12/23/20 12/23/20 12/23/20 Range/Units 05:01 06:00 07:00 RBC (4.30-5.90) m/uL Hgb (13.0-17.5) gm/dL Hct (39.0-53.0) % Sodium (137-145) mmol/L Carbon Dioxide (22-30) mmol/L BUN (9-20) mg/dL Glucose (74-99) mg/dL POC Glucose (mg/dL) 207 H 202 H 225 H (75-99) mg/dL Hemoglobin A1c (4.0-6.0) % Magnesium (1.6-2.3) mg/dL 12/23/20 Range/Units 08:26 RBC (4.30-5.90) m/uL Hgb (13.0-17.5) gm/dL Hct (39.0-53.0) % Sodium (137-145) mmol/L Carbon Dioxide (22-30) mmol/L BUN (9-20) mg/dL Glucose (74-99) mg/dL POC Glucose (mg/dL) 236 H (75-99) mg/dL Hemoglobin A1c (4.0-6.0) % Magnesium (1.6-2.3) mg/dL Assessment and Plan Assessment: Impression: Acute diabetic ketoacidosis. Poorly controlled type 1 diabetes. Anion gap metabolic acidosis, acute, secondary to acute DKA. Pseudohyponatremia. Mostly secondary to hyperglycemia. Acute Hyperkalemia secondary to metabolic acidosis Gastroparesis. Recommendation: Continue present supportive care measures. Continue the treatment as per DKA protocol. Switch patient to subcu insulin and sliding scale coverage. Would also recommend Lantus insulin. Transfer patient out of the ICU to a regular medical floor. Will follow Time with Patient: Less than 30
[2020-12-23 11:47] LABS: Glucose,Whole Blood 225 mg/dL (75-99)
[2020-12-23] MEDS: INSULIN ASPART (NovoLOG) 100 UNIT/ML VIAL SQ SCH ×5 (12:02→20:42)
[2020-12-23] MEDS ORDERED: PANTOPRAZOLE 40 MG TABLET PO STA (13:18)
[2020-12-23] MEDS: DILTIAZEM CD 120 MG CAP.ER.24H PO SCH (13:33)
[2020-12-23] MEDS: lisinopriL 10 MG TAB PO SCH (13:33)
[2020-12-23 15:38] VITALS: RESP 18
[2020-12-23 16:56] LABS: Glucose,Whole Blood 114 mg/dL (75-99)
[2020-12-23] MEDS: METOCLOPRAMIDE 5 MG TAB PO SCH (17:19)
[2020-12-23 20:32] LABS: Glucose,Whole Blood 118 mg/dL (75-99)
[2020-12-24] MEDS: MORPHINE SULFATE 2 MG/ML SYRINGE IVP PRN ×2 (03:17→09:04)
[2020-12-24 05:03] VITALS: TEMP 98.1
[2020-12-24] MEDS: INSULIN ASPART (NovoLOG) 100 UNIT/ML VIAL SQ SCH ×4 (06:33→12:51)
[2020-12-24 06:34] LABS: Glucose,Whole Blood 70 mg/dL (75-99)
[2020-12-24] MEDS: METOCLOPRAMIDE 5 MG TAB PO SCH ×2 (06:36→12:51)
[2020-12-24] MEDS: INSULIN DETEMIR (LEVEMIR) 100 UNIT/ML SYR SQ SCH (06:36)
[2020-12-24] MEDS ORDERED: PANTOPRAZOLE 40 MG TABLET PO SCH (07:30)
[2020-12-24 08:27] LABS: African American GFR (CKD) >90 (>60 ml/min/1.73 sqM); Anion Gap 6 mmol/L; Blood Urea Nitrogen 13 mg/dL (9-20); Calcium 9.4 mg/dL (8.4-10.2); Carbon Dioxide 27 mmol/L (22-30); Chloride 99 mmol/L (98-107); Glucose 86 mg/dL (74-99); Non-African American GFR(CKD) >90 (>60 ml/min/1.73 sqM); Phosphorus 3.2 mg/dL (2.5-4.5); Potassium 3.7 mmol/L (3.5-5.1); Sodium 132 mmol/L (137-145)
[2020-12-24] MEDS: HEPARIN SODIUM,PORCINE 5,000 UNIT/ML 1 ML VIAL SQ SCH (09:05)
[2020-12-24] MEDS: DILTIAZEM CD 120 MG CAP.ER.24H PO SCH (09:06)
--- NOTE | 2020-12-24 11:06 | P.DS ---
Providers Date of admission: 12/21/20 23:09 Expected date of discharge: 12/24/20 Attending physician: Lilia Donato MD Consults: 12/21/20 22:34 Consult Physician Stat Consulting Provider: Nathalie Loco Consult Reason/Comments: icu patient Do you want consulting provider notified?: Already Contacted Primary care physician: Stated None Hospital Course: This is a 40-year-old male with past medical history noted below significant for type 1 diabetes who presented to the emergency room with nausea and vomiting one day after being discharged from the hospital in [place]. Patient was evaluated in the ER and admitted to the hospital for further management of his medical problems noted below. 1. Diabetic ketoacidosis 2. Uncontrolled type 1 diabetes, A1c 12.4 3. Acute metabolic acidosis 4. Nausea and vomiting 5. Hypovolemic hyponatremia 6. Hyperkalemia Patient was admitted to the ICU and is treated with insulin drip and aggressive IV fluid hydration. DKA protocol. Hyperkalemia resolved after being treated medically. He was transferred out of ICU and monitor for 24 hours on subcutaneous insulin and his blood glucose remained well controlled and repeat lab work was normal Given a prescription for Lantus 25 units at bedtime and NovoLog 5 units 3 times a day before each meal plus sliding scale insulin. Patient said that he was having difficulty paying for his prescription so the hospital recovering his prescription until the end of the month so that he can take it from there after he get his paycheck from disability Patient was given referral to a primary care physician, Dr. Zambrano Patient will be discharged home in a stable condition. For further details about this hospitalization please refer to the electronic chart. Time spent on discharge > 30 minutes including counseling and coordination of care Patient Condition at Discharge: Stable Plan - Discharge Summary Discharge Rx Participant: No New Discharge Prescriptions: New Insulin Glargine [Lantus] 25 unit SQ HS #5 vial INSULIN ASPART (NovoLOG) [NovoLOG (formulary)] 5 unit SQ AC-TID #5 vial Continue Insulin Aspart [NovoLOG] See Protocol SQ BID-W/MEALS dilTIAZem HCL [dilTIAZem HCL 24Hr ER (Xr)] 120 mg PO DAILY Acetaminophen Tab [Tylenol] 1,000 mg PO DAILY PRN PRN Reason: Pain lisinopriL [Zestril] 10 mg PO DAILY Discontinued Insulin Glargine,Hum.rec.anlog [Basaglar Kwikpen U-100] 30 unit SQ HS Insulin Aspart [NovoLOG] 16 unit SQ BID-W/MEALS Discharge Medication List Acetaminophen Tab [Tylenol] 1,000 mg PO DAILY PRN 12/21/20 [History] Insulin Aspart [NovoLOG] See Protocol SQ BID-W/MEALS 12/21/20 [History] dilTIAZem HCL [dilTIAZem HCL 24Hr ER (Xr)] 120 mg PO DAILY 12/21/20 [History] lisinopriL [Zestril] 10 mg PO DAILY 12/23/20 [History] INSULIN ASPART (NovoLOG) [NovoLOG (formulary)] 5 unit SQ AC-TID #5 vial 12/24/20 [Rx] Insulin Glargine [Lantus] 25 unit SQ HS #5 vial 12/24/20 [Rx] Follow up Appointment(s)/Referral(s): None,Stated [Primary Care Provider] - 1 Week Jairo Ayon [STAFF PHYSICIAN] - 1 Week Patient Instructions/Handouts: Diabetic Ketoacidosis (DC) Activity/Diet/Wound Care/Special Instructions: LOW COST DIABETIC SUPPLIES [facility] [id number], [place] [address] Discharge Disposition: HOME SELF-CARE
[2020-12-24 11:32] VITALS: BMI 20.5
[2020-12-24 11:47] VITALS: BP 140/94; PULSE 74
[2020-12-24 11:51] LABS: Glucose,Whole Blood 159 mg/dL (75-99)
[2020-12-24] MEDS: lisinopriL 10 MG TAB PO SCH (12:51)
== END 2020-12-24 15:37 | disposition home or self-care (01) | DRG 639 ==
LOC: EC 21:33 → 2SICU 23:09 → 3SCARD 12-23 11:41
PROVIDERS: ADMIT Internal Medicine; ATTEND Internal Medicine
DX: E10.10 Type 1 diabetes mellitus with ketoacidosis without coma (principal); E10.43 Type 1 diabetes mellitus with diabetic autonomic (poly)neuropathy; D72.829 Elevated white blood cell count, unspecified; E86.0 Dehydration; E86.1 Hypovolemia; E87.5 Hyperkalemia; K31.84 Gastroparesis; Z79.4 Long term (current) use of insulin; Z87.891 Personal history of nicotine dependence; I49.5 Sick sinus syndrome; Z88.6 Allergy status to analgesic agent; Z90.49 Acquired absence of other specified parts of digestive tract; Z20.822 Contact with and (suspected) exposure to COVID-19
CPT/HCPCS: 36415; 71045; 80048; 80051; 80053; 82150; 82565; 82803; 82947; 83036; 83605; 83690; 83735; 84100; 84520; 85025; 85027; 87635; 93005; 96361; 96374; 99291

== ENCOUNTER 2021-07-11 09:22 | Inpatient (IN) | payer MEDICARE, OTHER ==
[2021-07-11 09:42] LABS: Glucose,Whole Blood 400 mg/dL (75-99)
[2021-07-11] MEDS ORDERED: SODIUM CHLORIDE 0.9% 2,000 ML IV STA (09:46)
[2021-07-11] MEDS ORDERED: INSULIN REGULAR BOLUS (FROM DRIP BAG) IV ONE (09:47)
--- NOTE | 2021-07-11 10:32 | ED ---
General Adult HPI - General Chief complaint: Nausea/Vomiting/Diarrhea Stated complaint: hyperglycemia Time Seen by Provider: 07/11/21 09:25 Source: patient, EMS, RN notes reviewed, old records reviewed Mode of arrival: EMS Limitations: no limitations - History of Present Illness Initial comments: This is a 40-year-old male who presents emergency Department complaining of vomiting since yesterday. Patient states he has no specific abdominal pain just overall his abdomen is achy. Patient states he has had this occur in the past. Patient denies any fever chills or cough. Patient shortness breath or difficulty breathing. Patient denies chest pain. Patient denies any recent injury or trauma. Patient denies any diarrhea. Patient states after he was vomiting for quite a while he did notice some bright red blood in the emesis. - Related Data Home Medications Medication Instructions Recorded Confirmed Acetaminophen Tab [Tylenol] 1,000 mg PO DAILY PRN 12/21/20 12/21/20 Insulin Aspart [NovoLOG] See Protocol SQ BID-W/MEALS 12/21/20 12/21/20 dilTIAZem HCL [dilTIAZem HCL 24Hr 120 mg PO DAILY 12/21/20 12/21/20 ER (Xr)] lisinopriL [Zestril] 10 mg PO DAILY 12/23/20 12/23/20 Previous Rx's Medication Instructions Recorded INSULIN ASPART (NovoLOG) [NovoLOG 5 unit SQ AC-TID #5 vial 12/24/20 (formulary)] Insulin Detemir (Levemir) [Levemir] 25 unit SQ DAILY #5 vial 12/24/20 Allergies Allergy/AdvReac Type Severity Reaction Status Date / Time ibuprofen [From Motrin] Allergy Itching Verified 12/21/20 23:21 Review of Systems ROS Statement: Those systems with pertinent positive or pertinent negative responses have been documented in the HPI. ROS Other: All systems not noted in ROS Statement are negative. Past Medical History Past Medical History: Diabetes Mellitus Additional Past Medical History / Comment(s): sick sinus syndrome History of Any Multi-Drug Resistant Organisms: None Reported Past Surgical History: Cholecystectomy Past Psychological History: No Psychological Hx Reported Smoking Status: Current every day smoker Past Alcohol Use History: None Reported Past Drug Use History: Marijuana General Exam - General Exam Comments Initial Comments: GENERAL: Patient is well-developed and well-nourished. Patient is nontoxic and well- hydrated and is in mild distress. ENT: Neck is soft and supple. No significant lymphadenopathy is noted. Oropharynx is clear. Dry mucous membranes. Neck has full range of motion without eliciting any pain. EYES: The sclera were anicteric and conjunctiva were pink and moist. Extraocular movements were intact and pupils were equal round and reactive to light. Eyelids were unremarkable. PULMONARY: Unlabored respirations. Good breath sounds bilaterally. No audible rales rhonchi or wheezing was noted. CARDIOVASCULAR: Patient is tachycardic at about 100 beats a minute ABDOMEN: Soft and nontender with normal bowel sounds. Patient has no specific area of tenderness. SKIN: Skin is clear with no lesions or rashes and otherwise unremarkable. NEUROLOGIC: Patient is alert and oriented x3. Cranial nerves II through XII are grossly intact. Motor and sensory are also intact. Normal speech, volume and content. Symmetrical smile. MUSCULOSKELETAL: Normal extremities with adequate strength and full range of motion. LYMPHATICS: No significant lymphadenopathy is noted PSYCHIATRIC: Normal psychiatric evaluation. Limitations: no limitations Course Vital Signs 07/11/21 07/11/21 09:29 10:34 Temperature 97.8 F Pulse Rate 101 H Respiratory 20 18 Rate Blood Pressure 145/88 O2 Sat by Pulse 100 Oximetry Medical Decision Making - Medical Decision Making Patient's sugar was in the 400s. Patient's bicarb 6 I started the patient immediately on an insulin drip after I gave the patient insulin bolus. Patient received 2 L of fluid initially. I spoke with some physicians they agreed to admit the patient admitted the patient I wrote wrote admitting orders I continued the insulin and fluids on the floor. - Lab Data Result diagrams: 07/11/21 10:29 07/11/21 10:29 Lab Results 07/11/21 07/11/21 07/11/21 Range/Units 09:41 10:29 10:29 WBC 21.2 H (3.8-10.6) k/uL RBC 4.80 (4.30-5.90) m/uL Hgb 15.2 (13.0-17.5) gm/dL Hct 45.5 (39.0-53.0) % MCV 94.8 (80.0-100.0) fL MCH 31.7 (25.0-35.0) pg MCHC 33.4 (31.0-37.0) g/dL RDW 13.9 (11.5-15.5) % Plt Count 387 (150-450) k/uL MPV 8.8 Neutrophils % 86 % Lymphocytes % 9 % Monocytes % 4 % Eosinophils % 0 % Basophils % 0 % Neutrophils # 18.3 H (1.3-7.7) k/uL Lymphocytes # 1.8 (1.0-4.8) k/uL Monocytes # 0.9 (0-1.0) k/uL Eosinophils # 0.0 (0-0.7) k/uL Basophils # 0.0 (0-0.2) k/uL PT (9.0-12.0) sec INR (<1.2) APTT (22.0-30.0) sec Sodium 140 (137-145) mmol/L Potassium 5.5 H (3.5-5.1) mmol/L Chloride 101 (98-107) mmol/L Carbon Dioxide 6 L* (22-30) mmol/L Anion Gap 33 mmol/L BUN 28 H (9-20) mg/dL Creatinine 1.28 H (0.66-1.25) mg/dL Est GFR (CKD-EPI)AfAm 80 (>60 ml/min/1.73 sqM) Est GFR (CKD-EPI)NonAf 69 (>60 ml/min/1.73 sqM) Glucose 428 H (74-99) mg/dL POC Glucose (mg/dL) 400 H (75-99) mg/dL POC Glu Reference Test Clerk ID Dejah Romero Calcium 10.0 (8.4-10.2) mg/dL Total Bilirubin 0.7 (0.2-1.3) mg/dL AST 28 (17-59) U/L ALT 19 (4-49) U/L Alkaline Phosphatase 115 (38-126) U/L Total Protein 7.6 (6.3-8.2) g/dL Albumin 4.9 (3.5-5.0) g/dL Amylase 103 (30-110) U/L Lipase 47 (23-300) U/L 07/11/21 07/11/21 Range/Units 10:29 12:31 WBC (3.8-10.6) k/uL RBC (4.30-5.90) m/uL Hgb (13.0-17.5) gm/dL Hct (39.0-53.0) % MCV (80.0-100.0) fL MCH (25.0-35.0) pg MCHC (31.0-37.0) g/dL RDW (11.5-15.5) % Plt Count (150-450) k/uL MPV Neutrophils % % Lymphocytes % % Monocytes % % Eosinophils % % Basophils % % Neutrophils # (1.3-7.7) k/uL Lymphocytes # (1.0-4.8) k/uL Monocytes # (0-1.0) k/uL Eosinophils # (0-0.7) k/uL Basophils # (0-0.2) k/uL PT 9.9 (9.0-12.0) sec INR 0.9 (<1.2) APTT 20.8 L (22.0-30.0) sec Sodium (137-145) mmol/L Potassium (3.5-5.1) mmol/L Chloride (98-107) mmol/L Carbon Dioxide (22-30) mmol/L Anion Gap mmol/L BUN (9-20) mg/dL Creatinine (0.66-1.25) mg/dL Est GFR (CKD-EPI)AfAm (>60 ml/min/1.73 sqM) Est GFR (CKD-EPI)NonAf (>60 ml/min/1.73 sqM) Glucose (74-99) mg/dL POC Glucose (mg/dL) 257 H (75-99) mg/dL POC Glu Reference Test Clerk ID Gerry Raines Calcium (8.4-10.2) mg/dL Total Bilirubin (0.2-1.3) mg/dL AST (17-59) U/L ALT (4-49) U/L Alkaline Phosphatase (38-126) U/L Total Protein (6.3-8.2) g/dL Albumin (3.5-5.0) g/dL Amylase (30-110) U/L Lipase (23-300) U/L Critical Care Time Critical Care Time: Yes Total Critical Care Time: 35 Disposition Clinical Impression: Diabetic ketoacidosis Disposition: ADMITTED IP TO THIS [facility] Referrals: None,Stated [Primary Care Provider] - 1-2 days Time of Disposition: 12:40
[2021-07-11 10:47] LABS: Basophils % (A) 0 %; Eosinophils % (A) 0 %; HCT 45.5 % (39.0-53.0); HGB 15.2 gm/dL (13.0-17.5); Lymphocytes # (A) 1.8 k/uL (1.0-4.8); Lymphocytes % (A) 9 %; MCH 31.7 pg (25.0-35.0); MCHC 33.4 g/dL (31.0-37.0); MCV 94.8 fL (80.0-100.0); Mean Platelet Volume 8.8; Monocytes # (A) 0.9 k/uL (0-1.0); Monocytes % (A) 4 %; Neutrophils # (A) 18.3 k/uL (1.3-7.7); Neutrophils % (A) 86 %; Platelet Count 387 k/uL (150-450); RDW 13.9 % (11.5-15.5); WBC 21.2 k/uL (3.8-10.6)
[2021-07-11 10:49] LABS: Albumin 4.9 g/dL (3.5-5.0); Potassium 5.5 mmol/L (3.5-5.1); Total Bilirubin 0.7 mg/dL (0.2-1.3); Total Protein 7.6 g/dL (6.3-8.2)
[2021-07-11 10:56] LABS: INR 0.9 (<1.2); Prothrombin Time 9.9 sec (9.0-12.0)
[2021-07-11 11:07] LABS: Partial Thromboplastin Time 20.8 sec (22.0-30.0)
[2021-07-11] MEDS: INSULIN REGULAR 100 UNIT in SODIUM CHLORIDE 0.9% 100 ML IV SCH (11:09)
[2021-07-11 12:33] LABS: Glucose,Whole Blood 257 mg/dL (75-99)
[2021-07-11] MEDS ORDERED: SODIUM CHLORIDE 0.9% 1,000 ML IV SCH (12:45)
[2021-07-11 14:28] LABS: Glucose,Whole Blood 123 mg/dL (75-99)
[2021-07-11 15:06] LABS: Glucose,Whole Blood 113 mg/dL (75-99)
[2021-07-11] MEDS: D5-0.45% NACL WITH KCL 20MEQ/L 1,000 ML IV SCH ×2 (15:49→23:11)
[2021-07-11 16:01] LABS: Glucose,Whole Blood 85 mg/dL (75-99)
[2021-07-11 16:36] LABS: Glucose,Whole Blood 117 mg/dL (75-99)
[2021-07-11 17:19] LABS: African American GFR (CKD) >90 (>60 ml/min/1.73 sqM); Anion Gap 13 mmol/L; Blood Urea Nitrogen 27 mg/dL (9-20); Carbon Dioxide 17 mmol/L (22-30); Chloride 113 mmol/L (98-107); Glucose 106 mg/dL (74-99); Non-African American GFR(CKD) >90 (>60 ml/min/1.73 sqM); Phosphorus 2.1 mg/dL (2.5-4.5); Potassium 4.3 mmol/L (3.5-5.1); Sodium 143 mmol/L (137-145)
[2021-07-11 17:33] LABS: Glucose,Whole Blood 113 mg/dL (75-99)
[2021-07-11] MEDS: MORPHINE SULFATE 2 MG/ML SYRINGE IVP PRN (18:03)
[2021-07-11] MEDS: ONDANSETRON 4 MG/2 ML VIAL IVP PRN (18:04)
[2021-07-11 18:39] LABS: Glucose,Whole Blood 99 mg/dL (75-99)
[2021-07-11 19:05] LABS: Glucose,Whole Blood 129 mg/dL (75-99)
[2021-07-11 20:01] LABS: Glucose,Whole Blood 131 mg/dL (75-99)
[2021-07-11] MEDS: FAMOTIDINE 20 MG/2 ML VIAL IV SCH (20:14)
[2021-07-11 21:03] LABS: Glucose,Whole Blood 181 mg/dL (75-99)
[2021-07-11 21:49] LABS: African American GFR (CKD) >90 (>60 ml/min/1.73 sqM); Blood Urea Nitrogen 23 mg/dL (9-20); Carbon Dioxide 17 mmol/L (22-30); Glucose 180 mg/dL (74-99); Non-African American GFR(CKD) >90 (>60 ml/min/1.73 sqM); Phosphorus 2.1 mg/dL (2.5-4.5)
[2021-07-11 22:09] LABS: Glucose,Whole Blood 162 mg/dL (75-99)
[2021-07-11 22:17] LABS: Anion Gap 10 mmol/L; Chloride 110 mmol/L (98-107); Potassium 4.2 mmol/L (3.5-5.1); Sodium 137 mmol/L (137-145)
[2021-07-11 22:59] LABS: Glucose,Whole Blood 154 mg/dL (75-99)
[2021-07-12 00:03] LABS: Glucose,Whole Blood 177 mg/dL (75-99)
--- NOTE | 2021-07-12 00:17 | P.HPIM ---
History of Present Illness H&P Date: 07/11/21 Chief Complaint: Nausea vomiting and abdominal pain Patient is a 40-year-old male with known history of diabetes type 1, sick sinus syndrome, marijuana use and currently everyday smoking presents to ER with complaints of nausea vomiting and abdominal pain worsening since yesterday. Patient states that he started having abdominal pain yesterday followed by nausea and vomiting and unable to tolerate any oral diet. Patient is also complaining of diarrhea. No complaints of chest pain or shortness of breath. No fever no chills. No dysuria or hematuria. Patient states that he also noticed maroon-colored stools yesterday. On admission blood pressure 140/88 pulse 101 respiration 20 and pulse ox 100% on room air Laboratory data showed WBC 21.2 hemoglobin 13.1 platelets 387 Sodium 140 potassium 5.5 chloride 101 bicarb is 6 BUN 28 and creatinine 1.28 and blood sugar is 428 Acetone positive and lipase 47 liver enzymes are not elevated Review of Systems Constitutional: Patient denies any fever or chills . generalized weakness, no weight loss. Abdomen: Nausea vomiting and abdominal pain. Diarrhea.. Cardiovascular: Patient denies any chest pain or short of breath no palpitations. Respiratory: patient denied any cough or sputum production. No shortness of breath Neurologic: Patient denied any numbness or tingling headache. Musculoskeletal: Patient denies any complaints of joint swelling or deformity. Skin: Negative Psychiatric: Negative Endocrine: No heat or cold intolerance. No recent weight gain. Genitourinary: No dysuria or hematuria. All other 14 point ROS negative except the above Past Medical History Past Medical History: Diabetes Mellitus Additional Past Medical History / Comment(s): sick sinus syndrome History of Any Multi-Drug Resistant Organisms: None Reported Past Surgical History: Cholecystectomy Past Psychological History: No Psychological Hx Reported Smoking Status: Current every day smoker Past Alcohol Use History: None Reported Past Drug Use History: Marijuana Medications and Allergies Home Medications Medication Instructions Recorded Confirmed Type Insulin NPH Human Isophane 16 units SQ AC-TID 07/11/21 07/11/21 History [NovoLIN N] Allergies Allergy/AdvReac Type Severity Reaction Status Date / Time ibuprofen [From Motrin] Allergy Itching Verified 12/21/20 23:21 Physical Exam Vitals: Vital Signs Temp Pulse Resp BP Pulse Ox 07/11/21 14:28 97.8 F 100 18 121/71 96 07/11/21 14:00 100 18 121/71 96 07/11/21 13:00 107 H 18 143/84 96 07/11/21 12:00 91 18 146/91 96 07/11/21 10:34 18 07/11/21 09:29 97.8 F 101 H 20 145/88 100 Intake and Output 07/11/21 07/11/21 07/11/21 06:59 14:59 22:59 Intake Total 25.7 Balance 25.7 Intake: Intake, IV Titration 25.7 Amount Insulin Regular 100 unit 25.7 In Sodium Chloride 0.9% 100 ml @ 0.1 UNITS/KG/HR 7.788 mls/hr IV .[id number] [facility] Rx#:[id number] Other: Weight 77.111 kg 77.111 kg PHYSICAL EXAMINATION: Patient is lying in the bed comfortably, no acute distress, awake alert and oriented.. Patient is lethargic and drowsy. HEENT: Normocephalic. Neck is supple. Pupils reactive. Nostrils clear. Oral cavity is moist. Neck reveals no JVD, carotid bruits, or thyromegaly. CHEST EXAMINATION: Trachea is central. Symmetrical expansion. Lung yo clear to auscultation and percussion. CARDIAC: Normal S1, S2 with no gallops. No murmurs ABDOMEN: Soft. Bowel sounds normal. No organomegaly. No abdominal bruits. Extremities: reveal no edema. No clubbing or cyanosis Neurologically awake, alert, oriented x3 with well-coordinated movements. No fo mary deficits noted Skin: No rash or skin lesions. Psychiatric: Coperative. Nonsuicidal Musculoskeletal: No joint swelling or deformity. Normal range of motion. Results CBC & Chem 7: 07/11/21 10:29 07/11/21 21:26 Labs: Abnormal Lab Results - Last 24 Hours (Table) 07/11/21 07/11/21 07/11/21 Range/Units 09:41 10:29 10:29 WBC 21.2 H (3.8-10.6) k/uL Neutrophils # 18.3 H (1.3-7.7) k/uL APTT (22.0-30.0) sec Potassium 5.5 H (3.5-5.1) mmol/L Carbon Dioxide 6 L* (22-30) mmol/L BUN 28 H (9-20) mg/dL Creatinine 1.28 H (0.66-1.25) mg/dL Glucose 428 H (74-99) mg/dL POC Glucose (mg/dL) 400 H (75-99) mg/dL 07/11/21 07/11/21 07/11/21 Range/Units 10:29 12:31 14:26 WBC (3.8-10.6) k/uL Neutrophils # (1.3-7.7) k/uL APTT 20.8 L (22.0-30.0) sec Potassium (3.5-5.1) mmol/L Carbon Dioxide (22-30) mmol/L BUN (9-20) mg/dL Creatinine (0.66-1.25) mg/dL Glucose (74-99) mg/dL POC Glucose (mg/dL) 257 H 123 H (75-99) mg/dL 07/11/21 Range/Units 15:04 WBC (3.8-10.6) k/uL Neutrophils # (1.3-7.7) k/uL APTT (22.0-30.0) sec Potassium (3.5-5.1) mmol/L Carbon Dioxide (22-30) mmol/L BUN (9-20) mg/dL Creatinine (0.66-1.25) mg/dL Glucose (74-99) mg/dL POC Glucose (mg/dL) 113 H (75-99) mg/dL Thrombosis Risk Factor Assmnt - DVT/VTE Prophylaxis DVT/VTE Prophylaxis: Mechanical Prophylaxis ordered Assessment and Plan Assessment: Acute diabetic ketoacidosis Nausea vomiting and abdominal discomfort secondary above Diabetes type 1 Mild hyperkalemia due to acidosis Acute kidney injury likely prerenal Leukocytosis likely reactive. Rule out infection. DVT prophylaxis with SCDs. Plan: Patient will be current on insulin drip and monitor electrolytes every 4 hours., Until anion gap closes. Continue with symptomatic management for nausea and vomiting and continue with Pepcid and DVT prophylaxis with SCDs. Continue with IV hydration. Prognosis guarded at this time. Time with Patient: Greater than 30
[2021-07-12 01:08] LABS: Glucose,Whole Blood 168 mg/dL (75-99)
[2021-07-12 02:10] LABS: African American GFR (CKD) >90 (>60 ml/min/1.73 sqM); Anion Gap 8 mmol/L; Blood Urea Nitrogen 21 mg/dL (9-20); Calcium 8.6 mg/dL (8.4-10.2); Carbon Dioxide 20 mmol/L (22-30); Chloride 108 mmol/L (98-107); Glucose 188 mg/dL (74-99); Non-African American GFR(CKD) >90 (>60 ml/min/1.73 sqM); Phosphorus 2.2 mg/dL (2.5-4.5); Potassium 4.1 mmol/L (3.5-5.1); Sodium 136 mmol/L (137-145)
[2021-07-12 02:24] LABS: Glucose,Whole Blood 217 mg/dL (75-99)
[2021-07-12 03:19] LABS: Glucose,Whole Blood 192 mg/dL (75-99)
[2021-07-12 04:10] LABS: Glucose,Whole Blood 212 mg/dL (75-99)
[2021-07-12] MEDS: MORPHINE SULFATE 2 MG/ML SYRINGE IVP PRN ×3 (04:16→20:46)
[2021-07-12] MEDS: ONDANSETRON 4 MG/2 ML VIAL IVP PRN (04:16)
[2021-07-12] MEDS: INSULIN REGULAR 100 UNIT in SODIUM CHLORIDE 0.9% 100 ML IV SCH ×2 (04:21→17:51)
[2021-07-12] MEDS: D5-0.45% NACL WITH KCL 20MEQ/L 1,000 ML IV SCH ×2 (04:44→11:31)
[2021-07-12 05:14] LABS: Glucose,Whole Blood 193 mg/dL (75-99)
[2021-07-12 06:12] LABS: Glucose,Whole Blood 212 mg/dL (75-99)
[2021-07-12 07:04] LABS: Glucose,Whole Blood 221 mg/dL (75-99)
[2021-07-12 07:25] LABS: African American GFR (CKD) >90 (>60 ml/min/1.73 sqM); Anion Gap 8 mmol/L; Blood Urea Nitrogen 17 mg/dL (9-20); Calcium 8.7 mg/dL (8.4-10.2); Carbon Dioxide 20 mmol/L (22-30); Chloride 105 mmol/L (98-107); Glucose 237 mg/dL (74-99); Non-African American GFR(CKD) >90 (>60 ml/min/1.73 sqM); Potassium 4.1 mmol/L (3.5-5.1); Sodium 133 mmol/L (137-145)
[2021-07-12 07:32] LABS: Basophils % (A) 0 %; Eosinophils % (A) 0 %; HCT 37.8 % (39.0-53.0); HGB 12.6 gm/dL (13.0-17.5); Lymphocytes # (A) 2.1 k/uL (1.0-4.8); Lymphocytes % (A) 17 %; MCH 31.2 pg (25.0-35.0); MCHC 33.3 g/dL (31.0-37.0); MCV 93.7 fL (80.0-100.0); Mean Platelet Volume 7.7; Monocytes # (A) 0.7 k/uL (0-1.0); Monocytes % (A) 6 %; Neutrophils # (A) 9.4 k/uL (1.3-7.7); Neutrophils % (A) 75 %; Platelet Count 262 k/uL (150-450); RBC 4.03 m/uL (4.30-5.90); WBC 12.6 k/uL (3.8-10.6)
[2021-07-12 07:59] LABS: Glucose,Whole Blood 231 mg/dL (75-99)
[2021-07-12] MEDS: FAMOTIDINE 20 MG/2 ML VIAL IV SCH ×2 (08:04→20:48)
[2021-07-12 09:04] LABS: Glucose,Whole Blood 243 mg/dL (75-99)
[2021-07-12 10:04] LABS: Glucose,Whole Blood 291 mg/dL (75-99)
[2021-07-12 10:58] VITALS: BMI 19.7
[2021-07-12 11:02] LABS: Glucose,Whole Blood 250 mg/dL (75-99)
[2021-07-12 12:02] LABS: Glucose,Whole Blood 263 mg/dL (75-99)
[2021-07-12] MEDS ORDERED: INSULIN DETEMIR (LEVEMIR) 100 UNIT/ML SYR SQ ONE (12:30)
[2021-07-12] MEDS: SODIUM CHLORIDE 0.9% 1,000 ML IV SCH (13:03)
[2021-07-12] MEDS: INSULIN ASPART (NovoLOG) 100 UNIT/ML VIAL SQ SCH ×2 (13:07→17:41)
[2021-07-12 13:18] LABS: Glucose,Whole Blood 205 mg/dL (75-99)
[2021-07-12 16:50] LABS: Glucose,Whole Blood 97 mg/dL (75-99)
[2021-07-12 20:32] LABS: Glucose,Whole Blood 135 mg/dL (75-99)
[2021-07-12] MEDS ORDERED: INSULIN DETEMIR (LEVEMIR) 100 UNIT/ML SYR SQ SCH (21:00)
--- NOTE | 2021-07-12 23:38 | P.PN ---
Subjective Progress Note Date: 07/12/21 Principal diagnosis: Intractable nausea vomiting and abdominal pain. Acute diabetic ketoacidosis. Patient is a 40-year-old male with known history of diabetes type 1, sick sinus syndrome, marijuana use and currently everyday smoking presents to ER with complaints of nausea vomiting and abdominal pain worsening since yesterday. Patient states that he started having abdominal pain yesterday followed by nausea and vomiting and unable to tolerate any oral diet. Patient is also complaining of diarrhea. No complaints of chest pain or shortness of breath. No fever no chills. No dysuria or hematuria. Patient states that he also noticed maroon-colored stools yesterday. On admission blood pressure 140/88 pulse 101 respiration 20 and pulse ox 100% on room air Laboratory data showed WBC 21.2 hemoglobin 13.1 platelets 387 Sodium 140 potassium 5.5 chloride 101 bicarb is 6 BUN 28 and creatinine 1.28 and blood sugar is 428 Acetone positive and lipase 47 liver enzymes are not elevated 07/12/2021 Patient is currently resting in the bed. Patient is complaining of nausea but i mproved. Denied any abdominal pain. Controlled with medications. Patient has been afebrile. DKA has resolved. Patient restarted on subcu insulin and would like to try liquid diet. No complaints of paralysis. No chest pain or shortness of breath. No leg swelling. No dysuria or hematuria. Laboratory test showed WBC 12.6 hemoglobin 12.6 platelets 262 sodium 133 potassium 4.1 chloride 105 bicarb is 20 BUN 17 and creatinine 0.66 and blood sugar is 237 this morning. Current medications reviewed. Objective - Vital Signs Vital signs: Vital Signs Temp 98.3 F 07/12/21 08:00 Pulse 76 07/12/21 08:00 Resp 16 07/12/21 08:00 BP 149/85 07/12/21 08:00 Pulse Ox 99 07/12/21 08:00 Intake & Output 07/11/21 07/12/21 07/12/21 18:59 06:59 18:59 Intake Total 31.924 16.302 1.609 Output Total 800 1100 Balance 31.924 -783.698 -1098.391 Weight 77.111 kg 69.6 kg 69.6 kg Intake: IV 10 Invasive Line 1 10 Intake, IV Titration 31.924 6.302 1.609 Amount Insulin Regular 100 unit 31.924 6.302 1.609 In Sodium Chloride 0.9% 100 ml @ 0.1 UNITS/KG/HR 7.788 mls/hr IV .[id number] [facility] Rx#:[id number] Oral 0 Output: Urine 800 1100 Other: Voiding Method Urinal # Voids 0 - Exam PHYSICAL EXAMINATION: Patient is lying in the bed comfortably, no acute distress, awake alert and oriented. HEENT: Normocephalic. Neck is supple. Pupils reactive. Nostrils clear. Oral cavity is moist. Neck reveals no JVD, carotid bruits, or thyromegaly. CHEST EXAMINATION: Trachea is central. Symmetrical expansion. Lung yo clear to auscultation and percussion. CARDIAC: Normal S1, S2 with no gallops. No murmurs ABDOMEN: Soft. Bowel sounds normal. No organomegaly. No abdominal bruits. Extremities: reveal no edema. No clubbing or cyanosis Neurologically awake, alert, oriented x3 with well-coordinated movements. No focal deficits noted Skin: No rash or skin lesions. Psychiatric: Coperative. Nonsuicidal Musculoskeletal: No joint swelling or deformity. Normal range of motion. - Labs CBC & Chem 7: 07/12/21 06:46 07/12/21 06:46 Labs: Abnormal Lab Results - Last 24 Hours (Table) 07/11/21 07/11/21 07/11/21 Range/Units 15:04 16:29 16:33 WBC (3.8-10.6) k/uL RBC (4.30-5.90) m/uL Hgb (13.0-17.5) gm/dL Hct (39.0-53.0) % Neutrophils # (1.3-7.7) k/uL Sodium (137-145) mmol/L Chloride 113 H (98-107) mmol/L Carbon Dioxide 17 L (22-30) mmol/L BUN 27 H (9-20) mg/dL Glucose 106 H (74-99) mg/dL POC Glucose (mg/dL) 113 H 117 H (75-99) mg/dL Phosphorus 2.1 L (2.5-4.5) mg/dL 07/11/21 07/11/21 07/11/21 Range/Units 17:31 19:02 19:59 WBC (3.8-10.6) k/uL RBC (4.30-5.90) m/uL Hgb (13.0-17.5) gm/dL Hct (39.0-53.0) % Neutrophils # (1.3-7.7) k/uL Sodium (137-145) mmol/L Chloride (98-107) mmol/L Carbon Dioxide (22-30) mmol/L BUN (9-20) mg/dL Glucose (74-99) mg/dL POC Glucose (mg/dL) 113 H 129 H 131 H (75-99) mg/dL Phosphorus (2.5-4.5) mg/dL 07/11/21 07/11/21 07/11/21 Range/Units 21:00 21:26 22:07 WBC (3.8-10.6) k/uL RBC (4.30-5.90) m/uL Hgb (13.0-17.5) gm/dL Hct (39.0-53.0) % Neutrophils # (1.3-7.7) k/uL Sodium (137-145) mmol/L Chloride 110 H (98-107) mmol/L Carbon Dioxide 17 L (22-30) mmol/L BUN 23 H (9-20) mg/dL Glucose 180 H (74-99) mg/dL POC Glucose (mg/dL) 181 H 162 H (75-99) mg/dL Phosphorus 2.1 L (2.5-4.5) mg/dL 07/11/21 07/12/21 07/12/21 Range/Units 22:56 00:00 01:06 WBC (3.8-10.6) k/uL RBC (4.30-5.90) m/uL Hgb (13.0-17.5) gm/dL Hct (39.0-53.0) % Neutrophils # (1.3-7.7) k/uL Sodium (137-145) mmol/L Chloride (98-107) mmol/L Carbon Dioxide (22-30) mmol/L BUN (9-20) mg/dL Glucose (74-99) mg/dL POC Glucose (mg/dL) 154 H 177 H 168 H (75-99) mg/dL Phosphorus (2.5-4.5) mg/dL 07/12/21 07/12/21 07/12/21 Range/Units 01:25 02:22 03:17 WBC (3.8-10.6) k/uL RBC (4.30-5.90) m/uL Hgb (13.0-17.5) gm/dL Hct (39.0-53.0) % Neutrophils # (1.3-7.7) k/uL Sodium 136 L (137-145) mmol/L Chloride 108 H (98-107) mmol/L Carbon Dioxide 20 L (22-30) mmol/L BUN 21 H (9-20) mg/dL Glucose 188 H (74-99) mg/dL POC Glucose (mg/dL) 217 H 192 H (75-99) mg/dL Phosphorus 2.2 L (2.5-4.5) mg/dL 07/12/21 07/12/21 07/12/21 Range/Units 04:09 05:13 06:11 WBC (3.8-10.6) k/uL RBC (4.30-5.90) m/uL Hgb (13.0-17.5) gm/dL Hct (39.0-53.0) % Neutrophils # (1.3-7.7) k/uL Sodium (137-145) mmol/L Chloride (98-107) mmol/L Carbon Dioxide (22-30) mmol/L BUN (9-20) mg/dL Glucose (74-99) mg/dL POC Glucose (mg/dL) 212 H 193 H 212 H (75-99) mg/dL Phosphorus (2.5-4.5) mg/dL 07/12/21 07/12/21 07/12/21 Range/Units 06:46 06:46 07:02 WBC 12.6 H (3.8-10.6) k/uL RBC 4.03 L (4.30-5.90) m/uL Hgb 12.6 L (13.0-17.5) gm/dL Hct 37.8 L (39.0-53.0) % Neutrophils # 9.4 H (1.3-7.7) k/uL Sodium 133 L (137-145) mmol/L Chloride (98-107) mmol/L Carbon Dioxide 20 L (22-30) mmol/L BUN (9-20) mg/dL Glucose 237 H (74-99) mg/dL POC Glucose (mg/dL) 221 H (75-99) mg/dL Phosphorus (2.5-4.5) mg/dL 07/12/21 07/12/21 07/12/21 Range/Units 07:58 09:02 10:02 WBC (3.8-10.6) k/uL RBC (4.30-5.90) m/uL Hgb (13.0-17.5) gm/dL Hct (39.0-53.0) % Neutrophils # (1.3-7.7) k/uL Sodium (137-145) mmol/L Chloride (98-107) mmol/L Carbon Dioxide (22-30) mmol/L BUN (9-20) mg/dL Glucose (74-99) mg/dL POC Glucose (mg/dL) 231 H 243 H 291 H (75-99) mg/dL Phosphorus (2.5-4.5) mg/dL 07/12/21 07/12/21 07/12/21 Range/Units 11:00 12:00 13:17 WBC (3.8-10.6) k/uL RBC (4.30-5.90) m/uL Hgb (13.0-17.5) gm/dL Hct (39.0-53.0) % Neutrophils # (1.3-7.7) k/uL Sodium (137-145) mmol/L Chloride (98-107) mmol/L Carbon Dioxide (22-30) mmol/L BUN (9-20) mg/dL Glucose (74-99) mg/dL POC Glucose (mg/dL) 250 H 263 H 205 H (75-99) mg/dL Phosphorus (2.5-4.5) mg/dL Assessment and Plan Assessment: Acute diabetic ketoacidosis, resolved Nausea vomiting and abdominal discomfort secondary above Diabetes type 1 Mild hyperkalemia due to acidosis Acute kidney injury likely prerenal Leukocytosis likely reactive. Rule out infection. DVT prophylaxis with SCDs. Plan: DKA has resolved now. Patient will be started on subcu insulin and monitor blood sugars closely. Patient states that he takes 32 units of Levemir in the nighttime with 16 units of NovoLog 3 times daily with meals. Patient has been noncompliant with these insulin regimen. Patient is also out of insulin when he came to the hospital. We will discharge him Levemir 21 units and NovoLog 7 units 3 times daily before meals and continue with insulin sliding scale and titrate dose as needed. Continue with symptomatic management for nausea and vomiting and continue with Pepcid and DVT prophylaxis with SCDs. Continue with IV hydration. Prognosis guarded at this time. Time with Patient: Greater than 30
[2021-07-13 06:09] LABS: Glucose,Whole Blood 45 mg/dL (75-99)
[2021-07-13 06:26] LABS: Glucose,Whole Blood 76 mg/dL (75-99)
[2021-07-13] MEDS: MORPHINE SULFATE 2 MG/ML SYRINGE IVP PRN (08:35)
[2021-07-13] MEDS: FAMOTIDINE 20 MG/2 ML VIAL IV SCH (08:35)
[2021-07-13] MEDS: SODIUM CHLORIDE 0.9% 1,000 ML IV SCH (08:36)
[2021-07-13] MEDS: INSULIN ASPART (NovoLOG) 100 UNIT/ML VIAL SQ SCH ×2 (08:36→12:54)
[2021-07-13 11:52] LABS: Glucose,Whole Blood 157 mg/dL (75-99)
[2021-07-13 13:03] VITALS: BP 148/87; PULSE 72; RESP 20; TEMP 98
[2021-07-13 13:28] LABS: Basophils % (A) 0 %; Eosinophils # (A) 0.1 k/uL (0-0.7); Eosinophils % (A) 1 %; HCT 44.9 % (39.0-53.0); HGB 14.9 gm/dL (13.0-17.5); Lymphocytes # (A) 2.6 k/uL (1.0-4.8); Lymphocytes % (A) 26 %; MCH 31.1 pg (25.0-35.0); MCHC 33.1 g/dL (31.0-37.0); MCV 93.9 fL (80.0-100.0); Mean Platelet Volume 7.3; Monocytes # (A) 0.6 k/uL (0-1.0); Monocytes % (A) 6 %; Neutrophils # (A) 6.4 k/uL (1.3-7.7); Neutrophils % (A) 64 %; Platelet Count 301 k/uL (150-450); RBC 4.78 m/uL (4.30-5.90)
[2021-07-13 13:38] LABS: African American GFR (CKD) >90 (>60 ml/min/1.73 sqM); Anion Gap 8 mmol/L; Blood Urea Nitrogen 11 mg/dL (9-20); Calcium 9.4 mg/dL (8.4-10.2); Carbon Dioxide 26 mmol/L (22-30); Chloride 100 mmol/L (98-107); Glucose 156 mg/dL (74-99); Non-African American GFR(CKD) >90 (>60 ml/min/1.73 sqM); Potassium 3.5 mmol/L (3.5-5.1); Sodium 134 mmol/L (137-145)
== END 2021-07-13 15:07 | disposition home or self-care (01) | DRG 638 ==
LOC: EC 09:22 → 3SCARD 12:41
PROVIDERS: ADMIT Hospitalist; ATTEND Hospitalist
DX: E10.10 Type 1 diabetes mellitus with ketoacidosis without coma (principal); N17.9 Acute kidney failure, unspecified; D72.829 Elevated white blood cell count, unspecified; E87.5 Hyperkalemia; F17.200 Nicotine dependence, unspecified, uncomplicated; Z79.4 Long term (current) use of insulin; Z79.899 Other long term (current) drug therapy; F12.90 Cannabis use, unspecified, uncomplicated; I49.5 Sick sinus syndrome
CPT/HCPCS: 36415; 80048; 80051; 80053; 82009; 82150; 82565; 82947; 83690; 84100; 84520; 85025; 85610; 85730; 96360; 99291